=== PATIENT | female | born 1945 | race Caucasian/White ===

== ENCOUNTER → 2021-05-23 12:37 | Outpatient (BNVA) | payer MEDICARE, SELFPAY | PROVIDERS: Family Provider Family Medicine; PCP Family Medicine; Visit Provider Family Medicine | DX: E78.00 Pure hypercholesterolemia, unspecified (principal); Z00.00 Encounter for general adult medical examination without abnormal findings; I10 Essential (primary) hypertension | CPT/HCPCS: 80053; 80061; 85025 ==

== ENCOUNTER → 2021-08-15 11:34 | Outpatient (BNVA) | payer MEDICARE, SELFPAY | PROVIDERS: Family Provider Family Medicine; PCP Family Medicine; Visit Provider Registered Nurse Neonatal Intensive Care | DX: M54.9 Dorsalgia, unspecified (principal) | CPT/HCPCS: 81000 ==

== ENCOUNTER → 2021-09-05 10:28 | Outpatient (BNVA) | payer MEDICARE, SELFPAY | PROVIDERS: Family Provider Family Medicine; PCP Family Medicine; Visit Provider Nurse Practitioner | DX: N39.0 Urinary tract infection, site not specified (principal) | CPT/HCPCS: 81000 ==

== ENCOUNTER → 2021-09-19 08:58 | Outpatient (BNVA) | payer MEDICARE, SELFPAY | PROVIDERS: Family Provider Family Medicine; PCP Family Medicine; Visit Provider Family Medicine | DX: R10.9 Unspecified abdominal pain (principal); N20.1 Calculus of ureter; R10.32 Left lower quadrant pain | CPT/HCPCS: 81000 ==

== ENCOUNTER 2021-09-27 14:02 | Outpatient (CLI) | payer MEDICARE, SELFPAY ==
--- NOTE | 2021-09-27 14:00 | CT_ITS ---
WS: [id number] CT ABDOMEN PELVIS TECHNIQUE: Noncontrast CT of the abdomen and pelvis with coronal and sagittal reformatted images. CLINICAL INFORMATION: dysuria, left lower quad pain COMPARISON: None. DLP: 208.[address] scans at [facility] use at least one of these dose optimization techniques: automated e xposure control; mA and/or kV adjustment per patient size (includes targeted exams where dose is matc hed to clinical indication); or iterative reconstruction. FINDINGS: Prior hysterectomy.Mild hepatomegaly. Otherwise normal noncontrast liver. Normal gallbladder. Calcifi ed splenic granulomas. Normal GE junction. Lung bases are well aerated. Adrenal glands are normal. Mi ld fatty atrophy of the pancreas. Normal caliber abdominal aorta. Mild aortic calcification. No obstr ucting renal or ureteral calculi. Pelvic phleboliths. Normal sigmoid colon. No evidence of small or l arge bowel obstruction. No periaortic or pelvic lymphadenopathy. No inguinal lymphadenopathy. Slight anterolisthesis L3 on L4. Disc space narrowing worse L4-5. CT/CT kidney stone [id number] IMPRESSION: 1. No hydronephrosis in either kidney. No obstructing renal or ureteral calcul i. 2. Mild aortic calcification. Normal caliber abdominal aorta. 3. Prior hysterectomy. 4. Normal sigmoid colon. 5. No acute findings in the abdomen or pelvis.
== END 2021-09-27 14:03 | disposition home or self-care (01) ==
PROVIDERS: PCP Family Medicine; Visit Provider Family Medicine
DX: R30.0 Dysuria (principal); R10.32 Left lower quadrant pain; I70.0 Atherosclerosis of aorta; Z90.710 Acquired absence of both cervix and uterus
CPT/HCPCS: 74176

== ENCOUNTER → 2021-10-31 11:14 | Outpatient (BNVA) | payer MEDICARE, SELFPAY | PROVIDERS: PCP Family Medicine; Visit Provider Nurse Practitioner | DX: R50.9 Fever, unspecified (principal) | CPT/HCPCS: 87400; 87635 ==

== ENCOUNTER 2022-01-15 09:04 | Outpatient (CLI) | payer MEDICARE, SELFPAY ==
--- NOTE | 2022-01-15 10:00 | US_ITS ---
WS: [id number] INDICATION: Growing mass anterior LEFT chest and shoulder TECHNIQUE: Ultrasound soft tissue area of concern. FINDINGS: Ultrasound soft tissue area of concern. In the area of palpable concern there is a 6.4 x 3. 3 x 6.0 cm ovoid mixed echogenicity nodule. This most likely represents incidental lipoma. No other s uspicious lesions. US/US soft tissue/extremity [id number] IMPRESSION: Suspected lipoma in the area of concern described above
== END 2022-01-15 09:05 | disposition home or self-care (01) ==
LOC: RAD 09:06
PROVIDERS: PCP Family Medicine; Visit Provider Family Medicine
DX: D17.1 Benign lipomatous neoplasm of skin and subcutaneous tissue of trunk (principal); R22.2 Localized swelling, mass and lump, trunk
CPT/HCPCS: 76882

== ENCOUNTER 2022-02-14 06:43 | Observation (INO) | payer MEDICARE, SELFPAY ==
[2022-02-14] VITALS (24 sets, daily range): BP systolic 122–221; BP diastolic 58–103; PULSE 57–114; RESP 11–26; TEMP 36.5–36.7; O2SAT 96–100; BMI 26.5
[2022-02-14] MEDS: metoprolol tartrate 25 mg Tablet PO ×2 (08:02→09:21)
--- NOTE | 2022-02-14 08:32 | PC.PHAR ---
pt states she takes care of her own medications-rx written 02/13/22 for metoprolol tartrate 12.5mg bid pt states not picked up rx-pt had rx filled 09/13/21 for metoprolol tartrate 12.5mg bid pt states was just taking 12.5mg hs and ran out a few weeks ago or maybe longer-notes are made in the pharmacy comments
--- NOTE | 2022-02-14 08:43 | CT_ITS ---
WS: [id number] CT HEAD NONCONTRAST HISTORY: Elevated BP/dizziness TECHNIQUE: Contiguous axial imaging performed through the brain in 2.5 mm imaging. Bone and soft tiss ue windows. Sagittal and coronal reformats reviewed. All CT scans at [facility] [place] use at least one of these dose optimization techniques: automated exposure control; mA and/or kV adjustment per pa tient size (includes targeted exams where dose is matched to clinical indication); or iterative recon struction. DLP: 715.06 mGy.cm COMPARISON: None available. No acute intracranial hemorrhage, midline shift or mass effect. Very mild atrophy and small vessel ischemic disease. Mild calcification in the distal vertebral and intracranial carotid arteries. Ventricles: Normal size with no hydrocephalus. Paranasal sinuses: As visualized are clear. Mastoid air cells: Well pneumatized. Calvarium and scalp: Skull is intact with no soft tissue edema or swelling. CT/CT head wo con* [id number] IMPRESSION: 1. No acute intracranial hemorrhage. 2. Very mild atrophy and small vessel ischemic disease.
--- NOTE | 2022-02-14 08:43 | ECG_ITS ---
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 Measurements Intervals [place] Rate: 112 P: 54 MD: 145 QRS: 69 QRSD: 85 T: 49 QT: 340 QTc: 465 Interpretive Statements SINUS TACHYCARDIA WITH FREQUENT SUPRAVENTRICULAR RUNS NONSPECIFIC ST & T-WAVE ABNORMALITY ABNORMAL RHYTHM ECG No previous ECG available for comparison Electronically Signed On 02-14-2022 22:19:11 CDT by Vangie Mohamud M.D. [id number]
--- NOTE | 2022-02-14 09:14 | W.ED.DIZZY ---
HPI - Dizziness General: Chief Complaint: Dizziness Stated Complaint: BP abnormality Time Seen by Provider: 02/14/22 07:03 Source: patient Mode of arrival: ambulatory Limitations: no limitations History of Present Illness: HPI Narrative: 77-year-old female presents to the emergency room with dizziness lightheadedness and elevated blood pressure. At times she has near syncope. Her blood pressures been high last few weeks. Sometime the last 2 to 4 weeks she is uncertain of the exact date she ran out of metoprolol and stopped it. When she first came in she thought she is having panic attack. She denies any chest pain or shortness of breath. The metoprolol was initially started for what was described as palpitations but she stopped that after she had run out she is only been taking 12 and half twice daily in addition to that she is on lisinopril she takes her medications mostly at bedtime she is states she has been taking all of the other medications besides metoprolol regularly. She has no known history of atrial fibrillation. At the bedside she has intermittent short runs of rapid heart rates appears to be atrial fibrillation on auscultation it sounds as if she is having atrial fibrillation they are all self-limiting episodes. MD elicited complaint: dizziness and lightheadedness Onset (ago): day(s) Timing: gradual onset Severity: mild Description: lightheadedness and off-balance Context: change in medication Exacerbating factors: movement/ambulation and change in body position Relieving factors: remaining still and rest Associated symptoms: Denies change in hearing, chest pain, chills, cough, diaphoresis, ear discharge, ear pressure, fevers/chills, headache(s), malaise, nausea, nasal congestion, palpitations, rash, short of breath, syncope, tinnitus, vomiting or weakness Associated neuro symptoms: Reports confusion; Deny difficulty speaking, dysphagia, diplopia, extremity weakness, facial numbness, facial weakness, gait changes, numbness in extremities or visual changes Review of Systems Const: Denies: chills, malaise or diaphoresis ENMT: Denies: ear discharge, change in hearing, tinnitus or nasal congestion Card: Denies: chest pain, palpitations or syncope Resp: Denies: dyspnea, productive cough or non-productive cough GI: Denies: nausea, vomiting or dysphagia : Denies: flank pain, difficulty voiding, dysuria, urinary frequency or urinary urgency Skin/Breast: Denies: rash or pruritus Neuro: Reports: confusion; Denies: headache(s) or numbness in extremities PFSH ED PFSH: Medical History (Updated 02/14/22 @ 15:14 by Oliver Calero DO) Hypercholesteremia Hypertension Lipoma of anterior chest wall Ureterolithiasis Surgical History H/O: hysterectomy History of carpal tunnel surgery Family History Other CAD (coronary artery disease) Social History (Updated 02/14/22 @ 11:56 by Jamie Alexander MD) Smoking and tobacco status: never smoked Alcohol intake: never Physical Exam Const: COMMON NORMALS: no acute distress GENERAL APPEARANCE: cooperative and comfortable ORIENTATION/CONSCIOUSNESS: Yes awake, Yes oriented to person, Yes oriented to place and Yes oriented to time HENMT: COMMON NORMALS: normocephalic, atraumatic and hearing grossly normal bilaterally HEAD & SCALP: normocephalic and atraumatic Neck/C-Spine: COMMON NORMALS: no JVD Resp: COMMON NORMALS: normal respiratory effort, No retractions, No use of accessory muscles and clear to auscultation bilaterally AUSCULTATION: clear to auscultation bilaterally Cardio: COMMON NORMALS: no JVD, regular rate, regular rhythm and No murmurs present (Cardio) RATE: regular rate RHYTHM: regular rhythm GI: COMMON NORMALS: Soft to palpation and No hepatosplenomegaly present AUSCULTATION: Yes normoactive bowel sounds PALPATION: Yes Soft to palpation, No Tenderness to palpation present (GI), No Guarding due to palpation present (GI) and Yes No hepatosplenomegaly present Extremity: COMMON NORMALS: normal to inspection, capillary refill normal, no clubbing, cyanosis or edema, no calf tenderness and no pedal edema Neuro: SENSORIUM/ORIENTATION: Yes oriented to person, Yes oriented to place and Yes oriented to time Skin: COMMON NORMALS: no rashes or lesions noted GENERAL SKIN EXAM: no rashes or lesions noted Course Vital Signs: Vital signs: Vital Signs Temperature 98.1 F 02/14/22 07:10 Pulse Rate 75 02/14/22 13:22 Respiratory Rate 25 H 02/14/22 13:22 Blood Pressure 152/67 02/14/22 13:22 Pulse Oximetry 96 02/14/22 13:22 MDM - Dizziness Medical Decision Making While monitoring patient multiple episodes of self terminating atrial fibrillation on her monitor. She did have brief episodes of her heart rate going up 140s and 150s last for just 10-15 beats and then resolved. Her blood pressure is also markedly elevated. We gave her several push dose medications and it did not really respond much. We started on nicardipine. I chose nicardipine to they can continue to monitor her for her intermittent A. fib rather than support suppress it with the esmolol. We did give her some p.o. metoprolol initially gave her 5 IV and then 25 p.o. she continued to have episodes I gave her another 25 p.o. She not having any chest pain and neurologically she is fully intact at on her initial exam there is no localizing symptoms. The family became concerned she may be having a stroke I went and did a formal NIH score and she had a 0. At this point in think she needs to be admitted for accelerated hypertension which has improved remarkably on the nicardipine drip and also for her intermittent atrial fibrillation to assess effective treatment and potential for anticoagulation. Medical Records I reviewed the patient's medical records. Lab Data I reviewed the patient's lab results. : 02/14/22 09:13 02/14/22 09:[address] 02/14/22 08:43 IMPRESSION: 1. No acute intracranial hemorrhage. 2. Very mild atrophy and small vessel ischemic disease. Chest X-Ray 02/14/22 12:02 IMPRESSION: No acute findings. Finger X-Ray 02/14/22 12:06 IMPRESSION: 1. 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 2. There is edema in the soft tissues. Laboratory Results WBC 9.2 10^3/uL (4.0-10.0) 02/14/22 09:13 RBC 5.10 10^6/uL (4.1-5.3) 02/14/22 09:13 Hgb 15.0 g/dL (11.5-15.3) 02/14/22 09:13 Hct 43.7 % (37.0-47.0) 02/14/22 09:13 MCV 85.7 fl (81-99) 02/14/22 09:13 MCH 29.4 pg (28.0-34.0) 02/14/22 09:13 MCHC 34.3 g/dL (30.0-36.0) 02/14/22 09:13 RDW 13.9 % (12.1-15.1) 02/14/22 09:13 Plt Count 349 10^3/cmm (130-400) 02/14/22 09:13 MPV 9.9 fL (7.4-10.4) 02/14/22 09:13 Neut % (Auto) 57.8 % 02/14/22 09:13 Lymph % (Auto) 32.1 % 02/14/22 09:13 [place] % (Auto) 7.7 % 02/14/22 09:13 Eos % (Auto) 1.1 % 02/14/22 09:13 Baso % (Auto) 1.0 % 02/14/22 09:13 Neut # (Auto) 5.32 10^3/uL (1.8-7.7) 02/14/22 09:13 Lymph # (Auto) 3.0 10^3/uL (0.8-4.8) 02/14/22 09:13 [place] # (Auto) 0.7 10^3/uL (0.2-0.9) 02/14/22 09:13 Eos # (Auto) 0.1 10^3/uL (0.0-0.8) 02/14/22 09:13 Baso # (Auto) 0.1 10^3/uL (0.0-0.1) 02/14/22 09:13 Nucleated RBC % (auto) 0 % 02/14/22 09:13 Nucleated RBCs # 0.0 /100WBC 02/14/22 09:13 Sodium 140 mmol/L (136-145) 02/14/22 09:13 Potassium 4.0 mmol/L (3.5-5.1) 02/14/22 09:13 Chloride 104 mmol/L (98-107) 02/14/22 09:13 Carbon Dioxide 22 mmol/L (22-29) 02/14/22 09:13 Anion Gap 18.0 (5-19) 02/14/22 09:13 BUN 15 mg/dL (8-23) 02/14/22 09:13 Creatinine 0.8 mg/dL (0.5-0.9) 02/14/22 09:13 GFR Calculation Not Reportable 02/14/22 09:13 Glucose 124 mg/dL (65-115) H 02/14/22 09:13 Calculated Osmolality 292 mOsm/kg (285-295) 02/14/22 09:13 Calcium 9.7 mg/dL (8.5-10.5) 02/14/22 09:13 Magnesium 1.9 mg/dL (1.7-2.3) 02/14/22 09:13 Total Bilirubin 0.7 mg/dL (0.15-1.2) 02/14/22 09:13 AST 21 U/L (0-32) 02/14/22 09:13 ALT 9 U/L (0-33) 02/14/22 09:13 Alkaline Phosphatase 99 IU/L (35-105) 02/14/22 09:13 Troponin T Baseline 7 ng/L (0-10) 02/14/22 09:13 Troponin T 120 Minute 9.40 ng/L (0-10) 02/14/22 11:38 Delta Troponin T 2.4 ABS# (0-10) 02/14/22 11:38 Total Protein 8.3 g/dL (6.6-8.7) 02/14/22 09:13 Albumin 4.6 g/dL (3.5-5.2) 02/14/22 09:13 Globulin 3.7 g/dL (1.3-4.6) 02/14/22 09:13 TSH 2.79 uIU/mL (0.27-4.20) 02/14/22 09:13 Urine Color Yellow (Yellow) 02/14/22 09:00 Urine Appearance Clear (CLEAR) 02/14/22 09:00 Urine pH 5 (5-7) 02/14/22 09:00 Ur Specific [place] 1.000 (1.005-1.030) L 02/14/22 09:00 Urine Protein Neg (Negative) 02/14/22 09:00 Urine Glucose (UA) Norm (Normal) 02/14/22 09:00 Urine Ketones Negative (Negative) 02/14/22 09:00 Urine Blood Neg (Negative) 02/14/22 09:00 Urine Nitrate Negative (Negative) 02/14/22 09:00 Urine Bilirubin Neg (Negative) 02/14/22 09:00 Urine Urobilinogen Norm mg/dL (Negative) 02/14/22 09:00 Ur Leukocyte Esterase Negative (Negative) 02/14/22 09:00 Discharge Plan Discharge Patient Disposition: Admitted As Inpatient Clinical Impression: Accelerated hypertension, Intermittent atrial fibrillation Condition: Stable Prescriptions: No Action metoprolol tartrate 25 mg tablet 12.5 mg PO BID Qty: 90 2RF Aleve 220 mg Tablet 220 mg PO BID PRN (Reason: Pain) 0RF atorvastatin 10 mg tablet 10 mg PO BEDTIME 0RF lisinopril 20 mg tablet 20 mg PO BEDTIME 0RF Referrals: Gary Wyatt MD [Primary Care Provider] - Coding Level of Care Code ED Dye Machine Operator for Chg Fwd Exam Comprehensive
[2022-02-14] MEDS: enalaprilat 1.25 mg/mL Inj IVP (09:20)
[2022-02-14 09:21] LABS: Basophils # 0.1 10^3/uL (0.0-0.1); Eosinophils # 0.1 10^3/uL (0.0-0.8); Eosinophils % 1.1 %; Hematocrit 43.7 % (37.0-47.0); Lymphocytes % 32.1 %; Mean Corpuscular HGB Conc 34.3 g/dL (30.0-36.0); Mean Corpuscular Hemoglobin 29.4 pg (28.0-34.0); Mean Corpuscular Volume 85.7 fl (81-99); Mean Platelet Volume 9.9 fL (7.4-10.4); Monocytes # 0.7 10^3/uL (0.2-0.9); Monocytes % 7.7 %; Neutrophils # 5.32 10^3/uL (1.8-7.7); Neutrophils % 57.8 %; Nucleated Red Blood Cells % 0 %; Platelet Count 349 10^3/cmm (130-400); Red Cell Distribution Width 13.9 % (12.1-15.1); White Blood Count 9.2 10^3/uL (4.0-10.0)
[2022-02-14] MEDS: amlodipine 10 mg Tablet PO (09:21)
[2022-02-14] MEDS: metoprolol tartrate 1 mg/1 mL SDV 5 mL 5 MG IVP (09:21)
[2022-02-14 09:39] LABS: Alanine Aminotransferase 9 U/L (0-33); Albumin Level 4.6 g/dL (3.5-5.2); Alkaline Phosphatase 99 IU/L (35-105); Aspartate Amino Transferase 21 U/L (0-32); Blood Urea Nitrogen 15 mg/dL (8-23); Calcium 9.7 mg/dL (8.5-10.5); Carbon Dioxide 22 mmol/L (22-29); Chloride 104 mmol/L (98-107); Globulin 3.7 g/dL (1.3-4.6); Glucose 124 mg/dL (65-115); Osmolality Calculated 292 mOsm/kg (285-295); Sodium 140 mmol/L (136-145); Total Bilirubin 0.7 mg/dL (0.15-1.2); Total Protein 8.3 g/dL (6.6-8.7)
--- NOTE | 2022-02-14 10:07 | ECG_ITS ---
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 Measurements Intervals [place] Rate: 78 P: 11 CO: 130 QRS: 60 QRSD: 84 T: 53 QT: 377 QTc: 431 Interpretive Statements SINUS RHYTHM WITH FREQUENT SUPRAVENTRICULAR PREMATURE COMPLEXES Compared to ECG 02/14/2022 08:22:58 Sinus tachycardia no longer present T-wave abnormality no longer present Electronically Signed On 02-14-2022 22:16:39 CDT by Vangie Mohamud M.D. [id number]
[2022-02-14] MEDS: nicardipine 20 MG/200 ML PREMIX 50 MG IV (10:42)
[2022-02-14] MEDS: enoxaparin 80 mg/0.8 mL Syringe 70 MG SUBCUT ×2 (10:45→21:55)
[2022-02-14 11:25] LABS: Troponin(5th) Baseline 7 ng/L (0-10)
[2022-02-14 11:28] LABS: Magnesium 1.9 mg/dL (1.7-2.3); Thyroid Stimulating Hormone 2.79 uIU/mL (0.27-4.20)
--- NOTE | 2022-02-14 11:35 | USCV_ITS ---
Aida Dhillon Age: 77 Gender: F : 1945 Exam Date: 02/14/2022 12:56 Ordering Phys: Jamie Alexander MD Technologist: CAM Exam Location: [facility] [place] Indication: near syncope today. No hx cardiac intervention per patient. BP: 154 / 70 HR: 86 Rhythm: Sinus Technical Quality: Adequate MEASUREMENTS (Male / Female) Normal Values 2D ECHO LV Diastolic Diameter PLAX 3.9 cm 4.2 - 5.9 / 3.9 - 5.3 cm LV Systolic Diameter PLAX 2.3 cm IVS Diastolic Thickness 1.0 cm 0.6 - 1.0 / 0.6 - 0.9 cm IVS Systolic Thickness 1.5 cm LVPW Diastolic Thickness 1.0 cm 0.6 - 1.0 / 0.6 - 0.9 cm LVPW Systolic Thickness 1.3 cm LVOT Diameter 1.7 cm LV Ejection Fraction 2D Teich 74.2 % LV Ejection Fraction MOD 2C 73.7 % LV Ejection Fraction 2C AL 75.7 % LA Diameter 3.1 cm LA Width 2.9 cm LA Height 4.4 cm RA Width 3.0 cm RA Height 4.1 cm Aorta at Sinotubular Diameter 2.3 cm IVC Diameter 1.7 cm M-MODE Aortic Annulus Diameter 2.6 cm LA Ao Ratio MM 1.3 MV E Point Septal Separation 0.4 cm DOPPLER AV Peak Velocity 155.0 cm/s LVOT Peak Velocity 128.0 cm/s AV Area Cont Eq vti 1.8 cm squared AV Area Cont Eq pk 2.0 cm squared MV Peak Velocity 134.0 cm/s MV Area PHT 2.3 cm squared Mitral E to A Ratio 0.6 MV E' Velocity 36.5 cm/s Mitral E to MV E' Ratio 11.3 Mitral E to LV E' Lateral Ratio 11.7 Mitral E to LV E' Septal Ratio 10.9 TR Peak Velocity 236.0 cm/s TR Peak Gradient 22.3 mmHg TV Peak E Velocity 57.0 cm/s Right Atrial Pressure 5.0 mmHg Pulmonary Artery Systolic Pressu 27.3 mmHg PV Peak Velocity 121.0 cm/s RV Acceleration Time 0.1 s RV Ejection Time 0.3 s RV AcT/ET 0.4 FINDINGS Left Ventricle Normal left ventricular size and systolic function, EF 71 %. Grade I/IV diastolic dysfunction (abnormal relaxation filling pattern), normal to mildly elevated filling pressures. Right Ventricle The right ventricle is normal in size and function. Right Atrium The right atrium is normal in size. Left Atrium The left atrium is normal in size. Mitral Valve No gross abnormalities noted Aortic Valve No gross abnormalities noted Tricuspid Valve No gross abnormalities noted Pulmonic Valve No gross abnormalities noted Pericardium Normal pericardium without effusion. Aorta Normal ascending aorta dimension. IVC Normal size and collapsibility CONCLUSIONS Normal left ventricular size and systolic function, EF 71 %. Grade I/IV diastolic dysfunction (abnormal relaxation filling pattern), normal to mildly elevated filling pressures. Normal cardiac chamber sizes. No significant valvular abnormalities There is no pericardial effusion. There are no intracardiac masses. No similar previous studies are available for comparison Dr Geraldine Eastman MD FACC (Electronically Signed) Final Date: 15 February 2022 00:47 S
--- NOTE | 2022-02-14 11:50 | PC.CHAP ---
Pastoral Care Encounter/Spiritual Assessment Type of Contact [] Declined adviser sales visit [x] Patient/Family/Request visit [] Outpatient visit [] Follow-up visit [] Physician referral [] Code/Alert [] Routine visit [] Staff referral [] Actively dying [] Patient sleeping [] Family support [] [] Out of room [] Palliative care [] [] Receiving care in room [] Pre-surgical visit [] Trauma [] Long length of stay [] ICU visit [x] Other: ED Relational/Emotional Strength [x] Patient feels connected with others/family/visitors/staff [] Distress [] Loneliness/isolation [] Abandonment Spirituality of Patient [x] Person of Reba [x] Attends Hoahaoism of their Reba [x] Believes in Prayer [x] Reads Bible or Yarsani materials [] There are Spiritual issues to be addressed [facility] Interventions [x] Prayer [x] Active listening [x] Non-anxious presence [x] Spiritual/emotional support [] Crisis/trauma care [] Spiritual counseling [] Bereavement support [] Provided bereavement packet [] Provided Bible/devotional materials [] Provided toy/stuffed animal, coloring book to patient or family member [] Provided Communion [] Anointing/[place] [] Salvation [x] Completed spiritual assessment [] Other: Impact on Illness or Injury [] Angry [] Fearful [] Anxious [] Often cries [] Exhaustion [] Unable to work [] Unable to attend zoroastrianism [] Unable to walk/stand [] Unable to read [] Unable to drive [] Unable to eat/drink [] Unable to sleep [] Unable to be with family [] Patient intubated [] Other: Summary [facility] answered called to ED, patient desiring prayer. [facility] prayed with family and patient. Inquired of any other needs, none at thie time. Time spent with patient 10 min
--- NOTE | 2022-02-14 11:51 | PM.HP ---
Providers/Chief Complaint Admitting Physician: Jamie Alexander MD Primary Care Provider: Gary Wyatt MD Chief Complaint: BP abnormality History of Present Illness Aida Dhillon is a 77 year old female presents to the emergency department with complaints of palpitations, dizziness, lightheadedness. She feels like she might faint at times. She thinks this is been going on for at least 3 days, but perhaps longer. She has history of some palpitations dating back when she was around 21 years old or so. It has not been as bad as it is currently. She denies any history of atrial fibrillation. She states in the distant past she was checked out by Dr. Eastman, and told she had some leaky valves. Most recently she did complain of this to Dr. Wyatt, and received some metoprolol which she took up until about a month ago. She reports that helped significantly with the palpitations. She has also been on medication for hypertension, and having difficulty controlling her blood pressure. She denies any exertional chest discomfort. She denies any history of coronary disease. She states she has 5-6 caffeinated drinks per day. She denies any alcohol use. She reports no thyroid problems. She does report she was bit on the tip of her right fifth finger several days ago by a kitten. It has been swelling. In the emergency department blood pressure was markedly elevated and she received Norvasc, Vasotec, metoprolol, and was eventually placed on a nicardipine drip. She has received 1 dose of Lovenox. The emergency department physician reported she was having intermittent runs of atrial fibrillation. Review of Systems General: Reports: 10 or more systems reviewed and unremarkable except in HPI and below Const: Denies: fever(s) or chills Eyes: Denies: change in vision ENMT: Denies: throat pain Card: Reports: palpitations and pre-syncope Resp: Denies: dyspnea GI: Denies: abdominal pain, hematochezia or melena : Denies: flank pain or difficulty voiding Musc: Denies: neck pain Skin/Breast: Denies: rash Neuro: Denies: headache(s) Psych: Reports: anxiety; Denies: depression Endo: Denies: polyuria Kana/Lymph: Denies: easy bruising All/Imm: Denies: urticaria Medications/Allergies Home Medications Medication Instructions Recorded Confirmed Last Taken Type metoprolol tartrate 25 mg tablet 12.5 mg PO BID #90 tab 02/13/22 02/14/22 Unknown Rx atorvastatin 10 mg tablet 10 mg PO BEDTIME 02/14/22 02/14/22 02/13/22 History lisinopril 20 mg tablet 20 mg PO BEDTIME 02/14/22 02/14/22 02/13/22 History naproxen sodium 220 mg tablet 220 mg PO BID PRN 02/14/22 02/14/22 Unknown History (Aleve) Allergies Allergy/AdvReac Type Severity Reaction Status Date / Time No Known Allergies Allergy Verified 02/14/22 08:32 PFSH Acute PFSH: Medical History (Updated 02/14/22 @ 12:12 by Jamie Alexander MD) Hypercholesteremia Hypertension Lipoma of anterior chest wall Ureterolithiasis Surgical History H/O: hysterectomy History of carpal tunnel surgery Family History Other CAD (coronary artery disease) Social History (Updated 02/14/22 @ 11:56 by Jamie Alexander MD) Smoking and tobacco status: never smoked Alcohol intake: never Vitals/I&O/Wt Last Vital Signs Temp 98.1 F 02/14/22 07:10 Pulse 89 02/14/22 11:48 Resp 21 H 02/14/22 11:48 BP 141/68 02/14/22 11:48 Pulse Ox 98 02/14/22 11:48 Weight last 48 hrs Weight 68.039 kg Physical Exam Narrative: General exam is a white female, conversant, reporting she feels somewhat better than on arrival. HEENT: Atraumatic normocephalic. Oropharynx clear. Neck is supple no lymphadenopathy thyromegaly Cardiovascular regular rate and rhythm with frequent premature beats. No murmur Lungs clear no wheezing or crackles Abdomen is soft with positive bowel sounds. No obvious organomegaly exams deferred Extremities no cyanosis clubbing or edema, cap refill brisk. Pulses full Skin no rash Neuro no focal deficits Data : 02/14/22 09:13 02/14/22 09:13 Other Labs: LFTs are normal Baseline troponin 7 TSH 2.[address] no acute change EKG demonstrates sinus rhythm, with frequent supraventricular complexes that are irregular at times. [place] is normal. ST depression is noted V4 through 6. Some ST changes are noted inferiorly as well. Magnesium is normal I have ordered a chest x-ray A&P Assessment and plan (1) Palpitations: Patient with complaints of palpitations upon arrival. The emergency department physician saw quite a bit of ectopy, runs of accelerated heart rate that was irregular consistent with atrial fibrillation. She was given multiple modifications for high blood pressure including metoprolol. She was given a dose of Lovenox. At this point her rhythm problems appear improved. Will continue metoprolol, 50 mg twice daily. Check echocardiogram TSH checked and normal as well as potassium and magnesium. Check chest x-ray Continue full anticoagulation for now Consider nuclear stress test in the future. Consider event monitor upon discharge. Status: Acute (2) Hypertensive urgency: Patient with significant elevated blood pressure on arrival. This is improved after dose of Norvasc, Vasotec, metoprolol, and initiation of nicardipine drip. Wean off nicardipine drip as tolerated Metoprolol 50 mg twice daily Lisinopril 20 mg at night Reassess tomorrow if Norvasc should be continued Status: Acute (3) Cat bite: Tetanus booster Augmentin 875 mg twice daily X-ray of right fifth finger Status: Acute Plan Multiple other medical problems as outlined in past medical history Full code Lovenox will suffice for DVT prophylaxis Attestations Medical Necessity Statement*: Will need greater than 2 midnight stay secondary to marked elevation of blood pressure with hypertensive urgency/accelerated hypertension in this patient with intermittent supraventricular rhythm consistent with atrial fibrillation requiring IV nicardipine currently. Coding Level of Care Code Acute Email Production Consultant for Omid Goodrich Diagnoses Palpitations R00.2 Hypertensive urgency I16.0 Cat bite [id number]
[2022-02-14 12:00] LABS: Add Urine Microscopic? NO; Charge for UA Resulting for Rev
[2022-02-14 12:01] LABS: Urine Appearance Clear (CLEAR); Urine Color Yellow (Yellow); pH Urine 5 (5-7)
[2022-02-14 12:02] LABS: Bilirubin Urine Neg (Negative); Blood Urine Neg (Negative); Glucose Urine UA Norm (Normal); Ketones Urine Negative (Negative); Leukocyte Esterase Urine Negative (Negative); Nitrate Urine Negative (Negative); Protein Urine Neg (Negative); Urobilinogen Urine Norm (Negative)
--- NOTE | 2022-02-14 12:02 | XRR_ITS ---
PROCEDURE INFORMATION: Exam: XR Chest Exam date and time: 02/14/2022 12:11 PM Age: 77 years old Clinical indication: Other: Palpitations TECHNIQUE: Imaging protocol: Radiologic exam of the chest. Views: 1 view. COMPARISON: CT kidney stone [id number] 09/27/2021 2:34 PM FINDINGS: Lungs: Unremarkable. No consolidation. Pleural spaces: Unremarkable. No pleural effusion. No pneumothorax. Heart/Mediastinum: Unremarkable. No cardiomegaly. Bones/joints: Unremarkable. XR/XR chest 1V portable [id number] IMPRESSION: No acute findings.
--- NOTE | 2022-02-14 12:06 | XRR_ITS ---
PROCEDURE INFORMATION: Exam: XR Right Finger(s) Exam date and time: 02/14/2022 12:12 PM Age: 77 years old Clinical indication: Injury or trauma; Other: Cat bite; Puncture; Right; Little finger; Injury date: 02/12/22; Injury details: Cat bit 5th digit 2 days ago, no pain just swelling; Additional info: Left 5th finger, history of cat bite TECHNIQUE: Imaging protocol: XR Right fingers. Views: Minimum 2 views. COMPARISON: US soft tissue/extremity [id number] 01/15/2022 9:22 AM FINDINGS: Bones/joints: Multi-articular primary osteoarthritic changes including joint space narrowing, subchondral cystic/sclerotic changes, and marginal osteophyte formations. These changes are most prominent across the 1st carpal metacarpal joint. Soft tissues: There is edema in the soft tissues. XR/XR finger RT min 2V [id number] IMPRESSION: 1. 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 2. There is edema in the soft tissues.
[2022-02-14 12:55] LABS: Troponin 5 2HR Delta 2.4 ABS# (0-10)
[2022-02-14 15:28] LABS: Troponin 5 6HR 10.07 ng/L (0-10)
[2022-02-14 15:36] LABS: Troponin 5 6HR Delta 3.07 ng/L (0-12)
--- NOTE | 2022-02-14 16:07 | ECG_ITS ---
[facility] Test Date: 2022-02-14 Pat Name: Aida Dhillon Department: Room: Gender: Female Rack Loader: : 1945 Requested By: Oliver Harrison Order Number: [id number] Lul MD: Vangie Mohamud M.D. Measurements Intervals [place] Rate: 65 P: 15 SC: 125 QRS: 74 QRSD: 85 T: 73 QT: 415 QTc: 433 Interpretive Statements SINUS RHYTHM Compared to ECG 02/14/2022 11:32:36 No significant changes Electronically Signed On 02-14-2022 22:22:46 CDT by Vangie Mohamud M.D. [id number]
[2022-02-14] MEDS: amoxicillin-clav 875-125 mg Tablet 1 TAB PO (18:43)
--- NOTE | 2022-02-14 20:50 | PC.NURSE ---
MAR Upon transferring orders for patient from ER to ICU, multiple orders in MAR for the same medication. Dr. Chahal contacted; orders clarified in orders by Dr. Chahal.
--- NOTE | 2022-02-14 20:56 | PM.EVENT ---
Event Note Event Note: Called with questions regarding multiple medications that were processed at the time of transfer. Reviewed patient's chart and Dr. Alexander's note and have continued metoprolol 50 mg p.o. twice daily along with lisinopril 20 mg p.o. at night. Nicardipine drip has been discontinued in the emergency room prior to patient's arrival in the ICU. I will not continue that at this time. Patient's blood pressure is currently 157/77 and pulse is 67. No recent pauses or ectopy identified per nursing report and patient without acute new complaint.
[2022-02-14] MEDS: metoprolol tartrate 50 mg Tablet PO (21:08)
[2022-02-14] MEDS: lisinopril 20 mg Tablet PO (21:09)
[2022-02-14] MEDS: atorvastatin 40 mg Tablet 10 MG PO (21:09)
[2022-02-14] MEDS: hyDRALAzine 20 mg/mL INJ 1 mL 10 MG IVP (22:56)
--- NOTE | 2022-02-14 23:00 | PC.NURSE ---
Anxiety Patient's systolic blood pressure > 200 and HR in 110s. Blood pressure cuff repositioned and pressure rechecked with a result of 192/91. Hydralazine PRN administered per OCT. About 15 minutes later, patient complaining of anxiety and feeling a pounding heart. Patient denies any pain or use of anxiety medication at home. Dr. Chahal contacted and verbal order received for 0.125 mg Xanax PO once. Medication administered per OCT.
[2022-02-14] MEDS: ALPRAZolam 0.5 mg Tablet 0.125 MG PO (23:38)
[2022-02-15] VITALS (69 sets, daily range): BP systolic 91–158; BP diastolic 45–82; PULSE 53–98; RESP 13–36; TEMP -17.7–36.9; O2SAT 93–100; BMI 26.5
--- NOTE | 2022-02-15 04:40 | PC.NURSE ---
Stress Test Upon informing patient of time of stress test in the morning, patient states I don't think I am well enough to do the stress test. I do not want to do it today. Education provided regarding importance of test, steps taken to prepare for the test, and how the test proceeds; educational papers also provided over the test. Dr. Chahal notified of patient refusal. Further education provided on when the physician will round in the morning and the process needed in order to change her diet order. Patient and family verbalized understanding.
[2022-02-15 05:50] LABS: Basophils # 0.1 10^3/uL (0.0-0.1); Eosinophils # 0.1 10^3/uL (0.0-0.8); Eosinophils % 0.7 %; Hematocrit 45.7 % (37.0-47.0); Hemoglobin 14.8 g/dL (11.5-15.3); Lymphocytes # 2.6 10^3/uL (0.8-4.8); Lymphocytes % 23.5 %; Mean Corpuscular HGB Conc 32.4 g/dL (30.0-36.0); Mean Corpuscular Hemoglobin 29.7 pg (28.0-34.0); Mean Corpuscular Volume 91.6 fl (81-99); Mean Platelet Volume 10.4 fL (7.4-10.4); Monocytes # 0.6 10^3/uL (0.2-0.9); Monocytes % 5.4 %; Neutrophils # 7.52 10^3/uL (1.8-7.7); Nucleated Red Blood Cells % 0 %; Platelet Count 369 10^3/cmm (130-400); Red Blood Count 4.99 10^6/uL (4.1-5.3); Red Cell Distribution Width 14.4 % (12.1-15.1); White Blood Count 10.9 10^3/uL (4.0-10.0)
--- NOTE | 2022-02-15 05:51 | PC.NURSE ---
Patient refuses stress test at this time. Pt states I just don't feel up to it right now. Patient and family educated on importance of test. Physician notified by patient's nurse.
[2022-02-15 06:06] LABS: Anion Gap 17.2 (5-19); Blood Urea Nitrogen 18 mg/dL (8-23); Calcium 9.5 mg/dL (8.5-10.5); Carbon Dioxide 23 mmol/L (22-29); Chloride 104 mmol/L (98-107); Glucose 114 mg/dL (65-115); Magnesium 1.8 mg/dL (1.7-2.3); Osmolality Calculated 293 mOsm/kg (285-295); Potassium 4.2 mmol/L (3.5-5.1); Sodium 140 mmol/L (136-145)
--- NOTE | 2022-02-15 07:55 | PM.PN ---
Subjective Subjective: Aida reports she feels tired and very hungry. She had some palpitations last night but they have let up. She had refused her stress test this morning so it has been canceled. She reported she did not feel like she could undergo it in her current state of hunger, and weakness. Daughter and her are still very concerned and want this done, but do not believe she can have this done today. Medications: Reviewed: Yes Vitals/I&O/Wt Last Vital Signs Temp 98.1 F 02/15/22 04:00 Pulse 60 02/15/22 06:30 Resp 22 H 02/15/22 06:30 BP 119/59 02/15/22 06:30 Pulse Ox 98 02/15/22 06:30 02/14/22 02/15/22 02/15/22 22:59 06:59 14:59 Output Total 200 / 200 Balance -200 / -95 Weight last 48 hrs Weight 67.993 kg Weight 67.993 kg Weight 68.039 kg Physical Exam Narrative: General exam is a white female, no apparent distress. Currently sinus rhythm with much less ectopy. Neck is supple no lymphadenopathy thyromegaly Cardiovascular regular rate and rhythm with frequent premature beats. No murmur Lungs clear no wheezing or crackles Abdomen is soft with positive bowel sounds. No obvious organomegaly Extremities no cyanosis clubbing or edema, cap refill brisk. Pulses full Skin no rash Data : 02/15/22 05:05 02/15/22 05:05 A&P Assessment and plan (1) Palpitations: Patient with complaints of palpitations upon arrival. The emergency department physician saw quite a bit of ectopy, runs of accelerated heart rate that was irregular consistent with atrial fibrillation. After extensive review of this it appears more consistent with frequent PACs, runs of SVT. She was given multiple modifications for high blood pressure including metoprolol. She was given a dose of Lovenox. At this point her rhythm problems appear improved. Occasional PACs are noted. TSH, potassium, magnesium level are all normal Will continue metoprolol, 50 mg twice daily. This has improved her rhythm substantially. Echocardiogram has now been completed, preserved EF, grade 1/4 diastolic dysfunction Chest x-ray normal Change anticoagulation to DVT prophylaxis Event monitor on discharge Nuclear stress test planned for tomorrow. May transfer to [facility]. Status: Acute (2) Hypertensive urgency: Patient with significant elevated blood pressure on arrival. This is improved after dose of Norvasc, Vasotec, metoprolol, and initiation of nicardipine drip. She is now off nicardipine drip Continue metoprolol 50 mg twice daily Continue lisinopril 20 mg at night Hold Norvasc this morning Status: Acute (3) Cat bite: Tetanus booster Augmentin 875 mg twice daily X-ray of right fifth finger demonstrates no obvious osteomyelitis Status: Acute Plan Multiple other medical problems as outlined in past medical history Full code Lovenox will suffice for DVT prophylaxis Attestations Medical Necessity Statement*: Needs continued hospitalization for close follow-up of elevated blood pressure requiring of cardiac pain yesterday, arrange nuclear stress test tomorrow. Coding Level of Care Code Acute Engineering Program Manager for Omid Goodrich Diagnoses Palpitations R00.2 Hypertensive urgency I16.0 Cat bite [id number]
[2022-02-15] MEDS: metoprolol tartrate 50 mg Tablet PO ×2 (08:05→20:23)
[2022-02-15] MEDS: aspirin 81 mg EC Tablet PO (08:05)
[2022-02-15] MEDS: amoxicillin-clav 875-125 mg Tablet 1 TAB PO ×2 (08:05→16:52)
[2022-02-15] MEDS: tetanus-diphtheria tox (adult) 0.5 mL SDV IM (08:14)
[2022-02-15] MEDS: ALPRAZolam 0.5 mg Tablet PO (16:52)
--- NOTE | 2022-02-15 17:53 | PC.NURSE ---
Pt has been resting in bed most of day, ambulates to bathroom s assistance. Denies any pain. Xanax 0.5mg PO given d/t c/o increased anxiety. VSS, RA, no issues noted. Will monitor.
--- NOTE | 2022-02-15 18:32 | PC.NURSE ---
PT transported to room 272 with family at bedside. Tolerated well. New nurse at bedside after arrival.
[2022-02-15] MEDS: lisinopril 20 mg Tablet PO (20:23)
[2022-02-15] MEDS: atorvastatin 40 mg Tablet 10 MG PO (20:23)
[2022-02-15] MEDS: enoxaparin 40 mg/0.4 mL Syringe SUBCUT (20:23)
[2022-02-16] VITALS (7 sets, daily range): BP systolic 110–152; BP diastolic 58–70; PULSE 49–79; RESP 16; TEMP 36.4; O2SAT 98–100
--- NOTE | 2022-02-16 05:22 | PC.NURSE ---
Instructed patient on cardiac stress this morning. Patient verbalized complete understanding stating, I am ready this morning. Patient denies need for anxiety medication at this time. Will continue to monitor.
--- NOTE | 2022-02-16 06:46 | ECG_ITS ---
[facility] Test Date: 2022-02-16 Pat Name: Aida Dhillon Department: Room: 272 Gender: Female Manager Life: Ary De Dios : 1945 Requested By: Jamie Howard Order Number: [id number] Lul MD: Rashel Alvarado M.D. Interpretive Statements NAME OF STUDY: LEXISCAN SESTAMIBI STRESS TEST INDICATION: [Chest Pain, arrhythmia, ] Procedure: At the baseline, the blood pressure was 142/60 mmHg with a heart rate of 59bpm. The electrocardiogram showed normal sinus bradycardia, normal axis with normal ST and T's. The Lexiscan was infused over a period of 20 seconds. A total of 0.4 mg of Lexiscan was infused. The stress phase was continued for a total of 5 minutes. Heart rate was at the end of stress phase was 89 bpm and a blood pressure of 76/47 mmHg. The EKG at the peak infusion revealed normal sinus rhythm with no significant ST-T wave changes. Sestamibi was injected 20 seconds after the Lexiscan infusion. Blood pressure at the end of recovery phase was 110/58 mmHg with a heart rate of 89 bpm. Conclusion: 1. Normal EKG response to Lexiscan infusion 2. No Lexiscan induced chest pain or cardiac arrhythmia. 3. Hypotensive blood pressure response and normal heart rate response. 4. Sestamibi/sestamibi perfusion scan pending; see separate report. Electronically Signed On 02-20-2022 14:22:29 CDT by Rashel Alvarado M.D. [id number]
[2022-02-16] MEDS: regadenoson 0.4 Mg/5 ml Syringe IVP (07:56)
[2022-02-16] MEDS: amoxicillin-clav 875-125 mg Tablet 1 TAB PO (10:18)
[2022-02-16] MEDS: aspirin 81 mg EC Tablet PO (10:18)
[2022-02-16] MEDS: metoprolol tartrate 50 mg Tablet PO (10:18)
--- NOTE | 2022-02-16 10:30 | NMCV_ITS ---
NM [place] perf SPECT r/s* [id number] Aida Dhillon Age: 77 Gender: F : 1945 Exam Date: 02/16/2022 06:51 Ordering Phys: Jamie Alexander MD Technologist: JUAN Melton Exam Location: [facility] Indications: CHEST PAIN STRESS TEST [facility] IMAGE PROTOCOL Rest/Stress 1 Lexiscan Day Radiopharmaceutical Dose (mCi) Administration Site Administered by Rest: Tc-99m 10.2 IV JUAN Salomon Sestamibi Stress:Tc-99m 32.2 IV JUAN Salomon Sestamibi Rest: 16-Feb-2022 60 Discovery 630 Stress: 16-Feb-2022 30 Discovery 630 0.4mg Lexiscan. Images obtained in supine and prone position. SPECT RESULTS Technical Quality: Excellent Raw Data Analysis: Normal Image Corrections: No attenuation or motion correction applied Summed Stress Score: 0 Summed Rest Score: 0 Summed Difference Score: 0 PERFUSION FINDINGS SPECT images demonstrate homogeneous tracer distribution throughout the myocardium. FUNCTIONAL RESULTS (calculated via Gated SPECT) Stress Image LV EF (%): 88 Stress EDV (mL):49 TID: 0.93 Stress ESV (mL):6 FUNCTIONAL FINDINGS: There is normal left ventricular systolic function. IMPRESSIONS 1. Normal myocardial perfusion imaging with no evidence of ischemia. 2. Normal LV systolic function Rashel Alvarado MD (Electronically Signed) Final Date: 16 February 2022 10:28 S
--- NOTE | 2022-02-16 11:35 | P.DS_ITS ---
Discharge Providers Date of Admission: 02/14/22 20:16 Date of Discharge: February 16, 2022 Attending Provider at Admission: Jamie Alexander MD Attending Provider at Discharge: Jamie Alexander MD Primary Care Provider: Gary Wyatt MD Diagnoses at Discharge Discharge Diagnosis (1) Palpitations: Status: Acute (2) Hypertensive urgency: Status: Acute (3) Cat bite: Status: Acute Reason for Visit Reason for Visit: BP abnormality Hospital Course Hospital Course Aida is a 77-year-old white female who presented to the hospital with significant palpitations. It was apparent from her strips there that she was having frequent runs of SVT. She was also having significant accelerated hypertension. She was initiated on a nicardipine drip, and beta-blockers were initiated. She ultimately titrated up to 50 mg metoprolol twice daily. Lisinopril 20 mg daily was also given. With this blood pressure came under better control, and she had much less arrhythmias. By the end of hospital stay she had only occasional PACs. She had no evidence of electrolyte abnormality, magnesium abnormality. Echocardiogram done in the hospital demonstrated normal ejection fraction, 1/4 diastolic dysfunction. Secondary to family history of premature heart disease, arrhythmia, chest discomfort she underwent a nuclear stress test which was normal on February 16. Other tests done in the hospital included a normal TSH. She will discharge today, with an event monitor on metoprolol, lisinopril, atorvastatin. She will follow-up with her primary care provider as well as cardiology. Physical Exam Narrative: General exam no distress Neck is supple no lymphadenopathy thyromegaly Cardiovascular regular rate and rhythm without murmur Lungs clear Abdomen is soft nontender positive bowel sounds Extremities no cyanosis clubbing or edema Discharge Data Studies Completed and Pending Completed Studies During Hospitalization Category Date Time Status CT head wo con* [id number] Stat Cat Scan 02/14/22 08:43 Completed Cardiac Stress Test MIBI [Sestamibi Stress Test Request Exams 02/16/22 06:46 Draft ] Routine XR chest 1V portable [id number] Routine Exams 02/14/22 12:02 Completed XR finger RT min 2V [id number] Routine Exams 02/14/22 12:06 Completed NM [place] perf SPECT r/s* [id number] Routine Nuc Med 02/16/22 10:30 Completed CV. echo complete* [id number] Routine Ultrasound 02/14/22 11:35 Completed Pending at discharge Category Date Time Status Cardiac Stress Test MIBI [Sestamibi Stress Test Request Exams 02/14/22 21:18 Stop Req ] Routine Cardiac Stress Test MIBI [Sestamibi Stress Test Request Exams 02/15/22 10:30 Stop Req ] Routine Radiology Impressions Head CT 02/14/22 08:43 IMPRESSION: 1. No acute intracranial hemorrhage. 2. Very mild atrophy and small vessel ischemic disease. Chest X-Ray 02/14/22 12:02 IMPRESSION: No acute findings. Finger X-Ray 02/14/22 12:06 IMPRESSION: 1. 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 2. There is edema in the soft tissues. Laboratory Results WBC 10.9 10^3/uL (4.0-10.0) H 02/15/22 05:05 RBC 4.99 10^6/uL (4.1-5.3) 02/15/22 05:05 Hgb 14.8 g/dL (11.5-15.3) 02/15/22 05:05 Hct 45.7 % (37.0-47.0) 02/15/22 05:05 MCV 91.6 fl (81-99) D 02/15/22 05:05 MCH 29.7 pg (28.0-34.0) 02/15/22 05:05 MCHC 32.4 g/dL (30.0-36.0) D 02/15/22 05:05 RDW 14.4 % (12.1-15.1) 02/15/22 05:05 Plt Count 369 10^3/cmm (130-400) 02/15/22 05:05 MPV 10.4 fL (7.4-10.4) 02/15/22 05:05 Neut % (Auto) 69.0 % 02/15/22 05:05 Lymph % (Auto) 23.5 % 02/15/22 05:05 [place] % (Auto) 5.4 % 02/15/22 05:05 Eos % (Auto) 0.7 % 02/15/22 05:05 Baso % (Auto) 1.0 % 02/15/22 05:05 Neut # (Auto) 7.52 10^3/uL (1.8-7.7) 02/15/22 05:05 Lymph # (Auto) 2.6 10^3/uL (0.8-4.8) 02/15/22 05:05 [place] # (Auto) 0.6 10^3/uL (0.2-0.9) 02/15/22 05:05 Eos # (Auto) 0.1 10^3/uL (0.0-0.8) 02/15/22 05:05 Baso # (Auto) 0.1 10^3/uL (0.0-0.1) 02/15/22 05:05 Nucleated RBC % (auto) 0 % 02/15/22 05:05 Nucleated RBCs # 0.0 /100WBC 02/15/22 05:05 Sodium 140 mmol/L (136-145) 02/15/22 05:05 Potassium 4.2 mmol/L (3.5-5.1) 02/15/22 05:05 Chloride 104 mmol/L (98-107) 02/15/22 05:05 Carbon Dioxide 23 mmol/L (22-29) 02/15/22 05:05 Anion Gap 17.2 (5-19) 02/15/22 05:05 BUN 18 mg/dL (8-23) 02/15/22 05:05 Creatinine 0.9 mg/dL (0.5-0.9) 02/15/22 05:05 GFR Calculation Not Reportable 02/15/22 05:05 Glucose 114 mg/dL (65-115) 02/15/22 05:05 Calculated Osmolality 293 mOsm/kg (285-295) 02/15/22 05:05 Calcium 9.5 mg/dL (8.5-10.5) 02/15/22 05:05 Magnesium 1.8 mg/dL (1.7-2.3) 02/15/22 05:05 Total Bilirubin 0.7 mg/dL (0.15-1.2) 02/14/22 09:13 AST 21 U/L (0-32) 02/14/22 09:13 ALT 9 U/L (0-33) 02/14/22 09:13 Alkaline Phosphatase 99 IU/L (35-105) 02/14/22 09:13 Troponin T Baseline 7 ng/L (0-10) 02/14/22 09:13 Troponin T 120 Minute 9.40 ng/L (0-10) 02/14/22 11:38 Delta Troponin T 2.4 ABS# (0-10) 02/14/22 11:38 Troponin T Hi Sens 6Hr 10.07 ng/L (0-10) H 02/14/22 14:44 Troponin T Hi Sens 6Hr Delta 3.07 ng/L (0-12) 02/14/22 14:44 Total Protein 8.3 g/dL (6.6-8.7) 02/14/22 09:13 Albumin 4.6 g/dL (3.5-5.2) 02/14/22 09:13 Globulin 3.7 g/dL (1.3-4.6) 02/14/22 09:13 TSH 2.79 uIU/mL (0.27-4.20) 02/14/22 09:13 Urine Color Yellow (Yellow) 02/14/22 09:00 Urine Appearance Clear (CLEAR) 02/14/22 09:00 Urine pH 5 (5-7) 02/14/22 09:00 Ur Specific [place] 1.000 (1.005-1.030) L 02/14/22 09:00 Urine Protein Neg (Negative) 02/14/22 09:00 Urine Glucose (UA) Norm (Normal) 02/14/22 09:00 Urine Ketones Negative (Negative) 02/14/22 09:00 Urine Blood Neg (Negative) 02/14/22 09:00 Urine Nitrate Negative (Negative) 02/14/22 09:00 Urine Bilirubin Neg (Negative) 02/14/22 09:00 Urine Urobilinogen Norm mg/dL (Negative) 02/14/22 09:00 Ur Leukocyte Esterase Negative (Negative) 02/14/22 09:00 Vitals Last Vital Signs Temp 97.6 F 02/16/22 09:19 Pulse 60 02/16/22 09:19 Resp 16 02/16/22 09:19 BP 144/70 02/16/22 09:19 Pulse Ox 100 02/16/22 09:19 Discharge Plan Discharge Patient Disposition: Home Condition: Stable Prescriptions: New Xanax 0.25 mg tablet 0.25 mg PO BID PRN (Reason: anxiety) Qty: 10 0RF aspirin 81 mg Tablet,Delayed Release (Dr/Ec) 81 mg PO DAILY Qty: 30 0RF amoxicillin-pot clavulanate 875-125 mg Tablet 1 tab PO BID Qty: 10 0RF metoprolol tartrate 50 mg Tablet 50 mg PO BID@0900,2100 Qty: 60 0RF Continued atorvastatin 10 mg tablet 10 mg PO BEDTIME 0RF lisinopril 20 mg tablet 20 mg PO BEDTIME 0RF Discontinued metoprolol tartrate 25 mg tablet 12.5 mg PO BID Qty: 90 2RF Aleve 220 mg Tablet 220 mg PO BID PRN (Reason: Pain) 0RF Discharge Orders: Discharge Order (Routine); Ordered 02/16/22 Ordered By: Jamie Alexander Other Ambulatory Orders: MCT/Event Monitor 21 Days (Routine) Timeframe: 1 Day Facility: [facility] - Location: Radiology Ordered By: Jamie Alexander Referrals: Gary Wyatt MD [Primary Care Provider] - 4-7 days Geraldine Eastman MD [Physician] - 7-10 days Discharge Diet: Cardiac Discharge Activity: Increase activity as tolerated Patient Instructions: Tetanus Toxoid (By injection), Opioid Safety Activity Restrictions/Additional Instructions: Take all meds as prescribed. Event monitor on discharge. Follow up with cardiology in 7-10 days. Return for any worsening, concerns Discharge Attestations Time Spent in Discharge Care*: greater than 30 min Quality Metrics Clinical Quality Measures [ No reported AMI, CVA or VTE this stay] Coding Level of Care Code Acute Chg FW DC note Diagnoses Palpitations R00.2 Hypertensive urgency I16.0 Cat bite W55.01XA
== END 2022-02-16 14:30 | disposition home or self-care (01) ==
LOC: ER 15:14 → ICU 02-15 01:30 → MEDSURG 02-16 11:15 → ICU 02-16 14:42
PROVIDERS: Admitting Provider Internal Medicine; Emergency Provider Family Medicine; PCP Family Medicine; Visit Provider Internal Medicine
DX: R00.2 Palpitations (principal); I16.0 Hypertensive urgency; W55.01XA Bitten by cat, initial encounter; E78.00 Pure hypercholesterolemia, unspecified; Z82.49 Family history of ischemic heart disease and other diseases of the circulatory system
CPT/HCPCS: 70450; 71045; 73140; 78452; 80048; 80053; 81003; 83735; 84443; 84484; 85025; 90471; 90714; 93005; 93306; 96372; 96374; 96375; 99285; A9500; G0378; J0360; J1650; J2785; J3490

== ENCOUNTER 2022-03-01 21:59 | Emergency (ER) | payer MEDICARE, SELFPAY ==
[2022-03-01 22:04] VITALS: BP 222/103; PULSE 63; RESP 16; TEMP 35.9; O2SAT 100
--- NOTE | 2022-03-01 22:25 | W.ED.ARRPALP ---
HPI - Arrhythmia/Palpitations General: Chief Complaint: Arrhythmia/Palpitations Stated Complaint: irregular heartbeat/feeling faint Time Seen by Provider: 03/01/22 22:25 History of Present Illness: Ms. Dhillon is a 77-year-old lady with history of hospitalization for accelerated hypertension who presents to the emergency department due to high blood pressure and generalized feeling. She reports earlier today noting increased palpitations which persisted throughout the day. She does have a longstanding history of palpitations but endorses that these are more intense and uncomfortable. Additionally she noted that her blood pressure at home was greater than 200 systolic. She denies missing any doses of medications or any known specific provoking factors. Intensity symptoms is moderate. Course has persisted. Similar to prior episodes. No other specific changes in health, exacerbating, or alleviating factors identified. Patient reports taking extra metoprolol prior to coming to the emergency department as well as Xanax. Onset (ago): hour(s) Duration: intermittent Severity: moderate Arrhythmia history: other Associated symptoms: Reports other Review of Systems General: Reports: 10 or more systems reviewed and unremarkable except in HPI and below PFSH ED PFSH: Medical History Hypercholesteremia Hypertension Lipoma of anterior chest wall Ureterolithiasis Surgical History H/O: hysterectomy History of carpal tunnel surgery Family History Other CAD (coronary artery disease) Social History Smoking and tobacco status: never smoked Alcohol intake: never Physical Exam Const: COMMON NORMALS: alert GENERAL APPEARANCE: cooperative and well developed HENMT: COMMON NORMALS: normocephalic and atraumatic HEAD & SCALP: normocephalic and atraumatic Eye: COMMON NORMALS: conjunctivae normal CONJUNCTIVA: Yes conjunctivae normal SCLERA: sclerae normal Neck/C-Spine: COMMON NORMALS: supple GENERAL: Yes trachea midline Resp: COMMON NORMALS: normal respiratory effort and clear to auscultation bilaterally EFFORT & INSPECTION: Yes able to speak in complete sentences AUSCULTATION: clear to auscultation bilaterally Cardio: COMMON NORMALS: regular rate and regular rhythm RATE: regular rate RHYTHM: regular rhythm GI: COMMON NORMALS: Soft to palpation PALPATION: Yes Soft to palpation and No Tenderness to palpation present (GI) PERCUSSION: normal to percussion Extremity: GENERAL: Yes normal exam except as noted and No edema Neuro: COMMON NORMALS: moves all extremities SENSORIUM/ORIENTATION: Yes alert and No Orientation impaired Psych: COMMON NORMALS: mental status grossly normal and Normal thought process present THOUGHT PROCESS: Normal thought process present Course ED course: - Patient was seen and evaluated by me at bedside - Patient placed on cardiac monitors, IV access obtained - Initial evaluation notable for exams above. - Labs and xrays personally interpreted by me. EKG initial showed sinus rhythm with PACs. Subsequent showing sinus rhythm. Neither demonstrate STEMI. -Antiemetic ordered - Labs notable for mild leukocytosis. Normal hemoglobin. Metabolic panel without acute derangement to explain symptoms. Delta troponin negative. - Imaging notable for no lobar consolidation or pneumothorax on chest x-ray -Patient had improvement which was sustained in blood pressure without further ED intervention perhaps secondary to medications taken at home. - Upon serial reexamination after treatment the patient was improved -Recent stress test reviewed. - Based on patient history, evaluation, and testing as interpreted the most likely cause of the patient's condition is palpitations and hypertension of unclear etiology - The results of ED evaluation were discussed with the patient including possible disposition options. I do think that additional testing would occur in the inpatient setting. Modifications to patient's medication regimen are challenging given that she took extra medication prior to coming to the ER. I discussed prescriptions and/or symptomatic cares (if applicable) including appropriate and responsible use, followup plan, and return precautions. The patient verbalized understanding and felt safe for discharge. - Patient discharged in satisfactory condition. Note: Click bubbles or prepopulated hughes in note writing are used for assistance with data collection and billing and are inherently more limited than narrative and other text portions of this note. Please use narrative for additional clinical history and defer to narrative/free test for any case of contradictory information. If information appears in only free text or click bubble it should be considered present or absent as reported. Please contact note automobile and property underwriter for clarifications of clinical information or contradictory information. MDM is a brief summary, contradictory or erroneous seeming information should be clarified and full note should be reviewed. Vital Signs: Vital signs: Vital Signs Temperature 96.6 F L 03/01/22 22:04 Pulse Rate 52 L 03/02/22 02:37 Respiratory Rate 18 03/02/22 02:37 Blood Pressure 146/87 03/02/22 02:37 Pulse Oximetry 99 03/02/22 02:37 MDM - Arrhythmia/Palpitations Medical Decision Making 77-year-old lady presenting with palpitations and high blood pressure that improved with treatment prior to coming to the emergency department. Negative ED evaluation. Recent stress test was negative. Satisfactory for outpatient management. Medical Records I reviewed the patient's medical records. Lab Data I reviewed the patient's lab results. : 03/01/22 22:50 03/01/22 22:50 Radiology Impressions Chest X-Ray 03/02/22 00:00 IMPRESSION: No acute findings. Laboratory Results WBC 11.8 10^3/uL (4.0-10.0) H 03/01/22 22:50 RBC 5.04 10^6/uL (4.1-5.3) 03/01/22 22:50 Hgb 15.0 g/dL (11.5-15.3) 03/01/22 22:50 Hct 44.1 % (37.0-47.0) 03/01/22 22:50 MCV 87.5 fl (81-99) 03/01/22 22:50 MCH 29.8 pg (28.0-34.0) 03/01/22 22:50 MCHC 34.0 g/dL (30.0-36.0) 03/01/22 22:50 RDW 13.7 % (12.1-15.1) 03/01/22 22:50 Plt Count 346 10^3/cmm (130-400) 03/01/22 22:50 MPV 10.1 fL (7.4-10.4) 03/01/22 22:50 Neut % (Auto) 66.3 % 03/01/22 22:50 Lymph % (Auto) 26.4 % 03/01/22 22:50 [place] % (Auto) 5.4 % 03/01/22 22:50 Eos % (Auto) 0.8 % 03/01/22 22:50 Baso % (Auto) 0.8 % 03/01/22 22:50 Neut # (Auto) 7.83 10^3/uL (1.8-7.7) H 03/01/22 22:50 Lymph # (Auto) 3.1 10^3/uL (0.8-4.8) 03/01/22 22:50 [place] # (Auto) 0.6 10^3/uL (0.2-0.9) 03/01/22 22:50 Eos # (Auto) 0.1 10^3/uL (0.0-0.8) 03/01/22 22:50 Baso # (Auto) 0.1 10^3/uL (0.0-0.1) 03/01/22 22:50 Nucleated RBC % (auto) 0 % 03/01/22 22:50 Nucleated RBCs # 0.0 /100WBC 03/01/22 22:50 Sodium 140 mmol/L (136-145) 03/01/22 22:50 Potassium 4.3 mmol/L (3.5-5.1) 03/01/22 22:50 Chloride 104 mmol/L (98-107) 03/01/22 22:50 Carbon Dioxide 24 mmol/L (22-29) 03/01/22 22:50 Anion Gap 16.3 (5-19) 03/01/22 22:50 BUN 15 mg/dL (8-23) 03/01/22 22:50 Creatinine 0.8 mg/dL (0.5-0.9) 03/01/22 22:50 GFR Calculation Not Reportable 03/01/22 22:50 Glucose 111 mg/dL (65-115) 03/01/22 22:50 Calculated Osmolality 292 mOsm/kg (285-295) 03/01/22 22:50 Calcium 9.7 mg/dL (8.5-10.5) 03/01/22 22:50 Total Bilirubin 0.6 mg/dL (0.15-1.2) 03/01/22 22:50 AST 22 U/L (0-32) 03/01/22 22:50 ALT 11 U/L (0-33) 03/01/22 22:50 Alkaline Phosphatase 102 IU/L (35-105) 03/01/22 22:50 Troponin T Baseline 7 ng/L (0-10) 03/01/22 22:50 Troponin T 120 Minute 7.02 ng/L (0-10) 03/02/22 00:50 Delta Troponin T 0.02 ABS# (0-10) 03/02/22 00:50 Total Protein 7.9 g/dL (6.6-8.7) 03/01/22 22:50 Albumin 4.5 g/dL (3.5-5.2) 03/01/22 22:50 Globulin 3.4 g/dL (1.3-4.6) 03/01/22 22:50 TSH 3.70 uIU/mL (0.27-4.20) 03/01/22 22:50 Discharge Plan Discharge Patient Disposition: Home Clinical Impression: Palpitations, Hypertension Condition: Stable Prescriptions: No Action Xanax 0.25 mg tablet 0.25 mg PO BID PRN (Reason: anxiety) Qty: 40 1RF atorvastatin 10 mg tablet 10 mg PO BEDTIME 0RF lisinopril 20 mg tablet 20 mg PO BEDTIME 0RF aspirin 81 mg Tablet,Delayed Release (Dr/Ec) 81 mg PO DAILY Qty: 30 0RF metoprolol tartrate 50 mg Tablet 50 mg PO BID@0900,2100 Qty: 60 0RF amoxicillin-pot clavulanate 875-125 mg Tablet 1 tab PO BID Qty: 10 0RF Discharge Orders: Discharge ED (Routine); Ordered 03/02/22 Ordered By: Paulo Redd Referrals: Gary Wyatt MD [Primary Care Provider] - Discharge Diet: Usual diet Discharge Activity: Increase activity as tolerated Patient Instructions: Heart Palpitations (ED), Hypertension (ED) Activity Restrictions/Additional Instructions: Thank you for visiting the emergency department. You were seen and evaluated for palpitations and high blood pressure. The exact cause of the symptoms is unclear however they improved without further ED treatment. Please follow-up with your primary care provider and cardiology. I will message case management for follow-up with cardiology. Please return to the emergency department for recurrent symptoms or anything else that you are concerned about and feel needs emergency department evaluation. Coding Level of Care Code ED Home Demonstration Agent for Omid Fwdevi Exam Comprehensive
--- NOTE | 2022-03-01 22:26 | ECG_ITS ---
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 Measurements Intervals [place] Rate: 74 P: 45 [place]: 124 QRS: 63 QRSD: 79 T: 49 QT: 375 QTc: 417 Interpretive Statements SINUS RHYTHM WITH OCCASIONAL SUPRAVENTRICULAR PREMATURE COMPLEXES Compared to ECG 02/14/2022 15:10:39 No significant changes Electronically Signed On 03-03-2022 12:13:37 CDT by Mike Sanches M.D. [id number] f
--- NOTE | 2022-03-01 22:41 | PC.NURSE ---
EKG was already done by nurse.
[2022-03-01 22:57] LABS: Basophils # 0.1 10^3/uL (0.0-0.1); Basophils % 0.8 %; Eosinophils # 0.1 10^3/uL (0.0-0.8); Eosinophils % 0.8 %; Hematocrit 44.1 % (37.0-47.0); Lymphocytes # 3.1 10^3/uL (0.8-4.8); Lymphocytes % 26.4 %; Mean Corpuscular Hemoglobin 29.8 pg (28.0-34.0); Mean Corpuscular Volume 87.5 fl (81-99); Mean Platelet Volume 10.1 fL (7.4-10.4); Monocytes # 0.6 10^3/uL (0.2-0.9); Monocytes % 5.4 %; Neutrophils # 7.83 10^3/uL (1.8-7.7); Neutrophils % 66.3 %; Nucleated Red Blood Cells % 0 %; Platelet Count 346 10^3/cmm (130-400); Red Blood Count 5.04 10^6/uL (4.1-5.3); Red Cell Distribution Width 13.7 % (12.1-15.1); White Blood Count 11.8 10^3/uL (4.0-10.0)
[2022-03-01 23:15] LABS: Troponin(5th) Baseline 7 ng/L (0-10)
[2022-03-01 23:18] VITALS: BP 152/75; PULSE 55; RESP 13; O2SAT 98
[2022-03-01 23:22] LABS: Alanine Aminotransferase 11 U/L (0-33); Albumin Level 4.5 g/dL (3.5-5.2); Alkaline Phosphatase 102 IU/L (35-105); Anion Gap 16.3 (5-19); Aspartate Amino Transferase 22 U/L (0-32); Blood Urea Nitrogen 15 mg/dL (8-23); Calcium 9.7 mg/dL (8.5-10.5); Carbon Dioxide 24 mmol/L (22-29); Chloride 104 mmol/L (98-107); Globulin 3.4 g/dL (1.3-4.6); Glucose 111 mg/dL (65-115); Osmolality Calculated 292 mOsm/kg (285-295); Potassium 4.3 mmol/L (3.5-5.1); Sodium 140 mmol/L (136-145); Total Bilirubin 0.6 mg/dL (0.15-1.2); Total Protein 7.9 g/dL (6.6-8.7)
--- NOTE | 2022-03-02 | XRR_ITS ---
PROCEDURE INFORMATION: Exam: XR Chest Exam date and time: 03/02/2022 12:07 AM Age: 77 years old Clinical indication: Other: Palpatations TECHNIQUE: Imaging protocol: Radiologic exam of the chest. Views: 1 view. COMPARISON: CR XR chest 1V portable [id number] 02/14/2022 12:11 PM FINDINGS: Lungs: Unremarkable. No consolidation. Pleural spaces: Unremarkable. No pleural effusion. No pneumothorax. Heart/Mediastinum: Unremarkable. No cardiomegaly. Bones/joints: Unremarkable. XR/XR chest 1V portable [id number] IMPRESSION: No acute findings.
--- NOTE | 2022-03-02 00:26 | ECG_ITS ---
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 Measurements Intervals [place] Rate: 50 P: -3 NC: 121 QRS: 63 QRSD: 84 T: 61 QT: 414 QTc: 379 Interpretive Statements SINUS BRADYCARDIA WITH SINUS ARRHYTHMIA Compared to ECG 02/14/2022 15:10:39 Sinus rhythm no longer present Electronically Signed On 03-03-2022 12:27:52 CDT by Mike Sanches M.D. [email or web address] medical [email or web address]/store/[id number]
[2022-03-02 01:14] LABS: Troponin 5 2HR 7.02 ng/L (0-10)
[2022-03-02 01:18] LABS: Troponin 5 2HR Delta 0.02 ABS# (0-10)
[2022-03-02 01:43] VITALS: PULSE 51; O2SAT 100
[2022-03-02 02:37] VITALS: BP 146/87; PULSE 52; RESP 18; O2SAT 99
--- NOTE | 2022-03-02 07:49 | PC.SOCIAL ---
Addendum entered by Noa Addison 05/17/22 08:55: Patient had a follow up appointment scheduled with [facility] - patient did attend appointment. Addendum entered by Noa Addison 03/08/22 18:18: Patient has a follow up appointment scheduled for Saturday April 30, 2022 a 12:[address] Alvarado at [facility]. Clinic will call patient with appointment information. Original Note: Cardiology F/u Consult received for cardiology follow-up. CM sent message to cardiology office requesting follow up appt. Clinic will contact patient with appointment date/time.
== END 2022-03-02 02:41 | disposition home or self-care (01) ==
PROVIDERS: Emergency Provider Emergency Medicine; PCP Family Medicine
DX: R00.2 Palpitations (principal); I10 Essential (primary) hypertension; Z79.82 Long term (current) use of aspirin
CPT/HCPCS: 71045; 80053; 84443; 84484; 85025; 93005; 99284

== ENCOUNTER → 2022-03-06 13:27 | Outpatient (BNVA) | payer MEDICARE, SELFPAY | PROVIDERS: PCP Family Medicine; Visit Provider Internal Medicine Cardiovascular Disease | DX: R00.2 Palpitations (principal); I49.8 Other specified cardiac arrhythmias; I49.3 Ventricular premature depolarization; I49.1 Atrial premature depolarization | CPT/HCPCS: 93225 ==

== ENCOUNTER 2022-04-02 22:38 | Observation (INO) | payer MEDICARE, SELFPAY ==
--- NOTE | 2022-04-02 22:39 | XRR_ITS ---
PROCEDURE INFORMATION: Exam: XR Chest Exam date and time: 04/02/2022 11:53 PM Age: 77 years old Clinical indication: Pain; Chest pressure; Patient HX: C/O palpitations. ; Additional info: Cp TECHNIQUE: Imaging protocol: Radiologic exam of the chest. Views: 1 view. COMPARISON: CR (CHEST, ) 03/02/2022 12:07 AM FINDINGS: Lungs: No consolidation. Pleural spaces: Unremarkable. No pleural effusion. No pneumothorax. Heart/Mediastinum: No cardiomegaly. Bones/joints: No acute fracture. XR/XR chest 1V portable [id number] IMPRESSION: No acute findings.
--- NOTE | 2022-04-02 22:40 | ECG_ITS ---
[facility] Test Date: 2022-04-02 Pat Name: Aida Dhillon Department: Room: Gender: Female Manager Online: : 1945 Requested By: Kath Keen Order Number: [id number] Lul MD: Geraldine Eastman M.D. Measurements Intervals [place] Rate: 82 P: 88 MS: 139 QRS: 87 QRSD: 86 T: 83 QT: 339 QTc: 396 Interpretive Statements SINUS RHYTHM WITH FREQUENT SUPRAVENTRICULAR PREMATURE COMPLEXES Compared to ECG 03/02/2022 00:12:10 Sinus bradycardia no longer present Sinus arrhythmia no longer present Electronically Signed On 04-03-2022 21:09:30 CDT by Geraldine Eastman M.D. [id number]
[2022-04-02 22:55] VITALS: BP 183/86; PULSE 76; RESP 18; TEMP 37; O2SAT 100; BMI 27.3
[2022-04-02 23:11] LABS: Basophils # 0.1 10^3/uL (0.0-0.1); Basophils % 0.8 %; Eosinophils # 0.2 10^3/uL (0.0-0.8); Eosinophils % 1.9 %; Hematocrit 45.4 % (37.0-47.0); Hemoglobin 15.1 g/dL (11.5-15.3); Lymphocytes # 4.8 10^3/uL (0.8-4.8); Lymphocytes % 44.7 %; Mean Corpuscular HGB Conc 33.3 g/dL (30.0-36.0); Mean Corpuscular Volume 90.1 fl (81-99); Mean Platelet Volume 10.1 fL (7.4-10.4); Monocytes # 0.8 10^3/uL (0.2-0.9); Monocytes % 7.4 %; Neutrophils # 4.83 10^3/uL (1.8-7.7); Neutrophils % 44.7 %; Nucleated Red Blood Cells % 0 %; Platelet Count 342 10^3/cmm (130-400); Red Blood Count 5.04 10^6/uL (4.1-5.3); Red Cell Distribution Width 13.7 % (12.1-15.1); White Blood Count 10.8 10^3/uL (4.0-10.0)
[2022-04-02 23:27] LABS: Alanine Aminotransferase 12 U/L (0-33); Albumin Level 4.2 g/dL (3.5-5.2); Alkaline Phosphatase 99 IU/L (35-105); Aspartate Amino Transferase 22 U/L (0-32); Blood Urea Nitrogen 18 mg/dL (8-23); Calcium 9.9 mg/dL (8.5-10.5); Carbon Dioxide 23 mmol/L (22-29); Chloride 103 mmol/L (98-107); Globulin 3.4 g/dL (1.3-4.6); Glucose 115 mg/dL (65-115); Osmolality Calculated 291 mOsm/kg (285-295); Sodium 139 mmol/L (136-145); Total Bilirubin 0.5 mg/dL (0.15-1.2); Total Protein 7.6 g/dL (6.6-8.7); Troponin(5th) Baseline 8 ng/L (0-10)
--- NOTE | 2022-04-02 23:45 | ED_ITS ---
HPI - Arrhythmia/Palpitations General: Chief Complaint: Arrhythmia/Palpitations Stated Complaint: Faintish/Heart palpitations Time Seen by Provider: 04/02/22 23:08 Source: patient Limitations: no limitations History of Present Illness: 77-year-old female who states she been having a history of irregular heartbeats she states she wore a Holter monitor is not follow-up with cardiology states that yesterday and today she has had increased palpitations feel like her heart was skipping does cause her some anxiety she takes Xanax at home she took a Xanax last night she felt improved but then felt worse today. States she is felt jittery and like she may faint she denies any pain denies any shortness of breath denies any diaphoresis or nausea. Associated symptoms: Deny nausea or vomiting Review of Systems Const: Denies: fever(s), chills, body aches or change in appetite Eyes: Denies: blurry vision or eye discomfort ENMT: Denies: throat pain or dental pain Card: Reports: palpitations; Denies: chest pain Resp: Denies: dyspnea GI: Denies: abdominal pain, nausea, vomiting or diarrhea : Denies: dysuria Musc: Denies: neck pain or back pain Skin/Breast: Denies: rash Neuro: Denies: headache(s) Psych: Denies: depression Kana/Lymph: Denies: easy bruising All/Imm: Denies: urticaria PFSH ED PFSH: Medical History Hypercholesteremia Hypertension Lipoma of anterior chest wall Ureterolithiasis Surgical History H/O: hysterectomy History of carpal tunnel surgery Family History Other CAD (coronary artery disease) Social History Smoking and tobacco status: never smoked Alcohol intake: never Physical Exam Const: COMMON NORMALS: no acute distress, patient oriented x3 and healthy appearing HENMT: COMMON NORMALS: normocephalic and atraumatic HEAD & SCALP: normoc ephalic and atraumatic Eye: COMMON NORMALS: Equal, round and reactive pupils present and EOMs intact bilaterally PUPIL: Yes Equal, round and reactive pupils present Neck/C-Spine: COMMON NORMALS: full ROM and supple Chest: COMMONS NORMALS: normal inspection of the chest and normal palpation of entire chest wall Resp: COMMON NORMALS: normal respiratory effort, No retractions, No use of accessory muscles and clear to auscultation bilaterally AUSCULTATION: clear to auscultation bilaterally Cardio: COMMON NORMALS: regular rate, regular rhythm and No murmurs present (Cardio) RATE: regular rate RHYTHM: regular rhythm GI: COMMON NORMALS: Normal to inspection, nondistended, normoactive bowel sounds present, Soft to palpation, non-tender and no masses PALPATION: Yes Soft to palpation Extremity: COMMON NORMALS: normal to inspection and full ROM Neuro: COMMON NORMALS: patient oriented x3, moves all extremities and no focal motor deficits Psych: COMMON NORMALS: mental status grossly normal, Normal thought process present and cooperative THOUGHT PROCESS: Normal thought process present Skin: COMMON NORMALS: no rashes or lesions noted and no wounds GENERAL SKIN EXAM: no rashes or lesions noted Course Vital Signs: Vital signs: Vital Signs Temperature 98.6 F 04/02/22 22:55 Pulse Rate 117 H 04/03/22 01:13 Respiratory Rate 14 04/03/22 01:13 Blood Pressure 157/114 04/03/22 01:13 Pulse Oximetry 98 04/03/22 01:13 Oxygen Delivery Me thod 04/03/22 01:13 MDM - Arrhythmia/Palpitations Medical Decision Making Patient presents here with palpitations she does have a tacky bradycardia dysrhythmia here she has had some near syncope I spoke to cardiology Dr. Eastman will admit at this time and observe. Lab Data : 04/02/22 23:05 04/02/22 23:05 Laboratory Results WBC 10.8 10^3/uL (4.0-10.0) H 04/02/22 23:05 RBC 5.04 10^6/uL (4.1-5.3) 04/02/22 23:05 Hgb 15.1 g/dL (11.5-15.3) 04/02/22 23:05 Hct 45.4 % (37.0-47.0) 04/02/22 23:05 MCV 90.1 fl (81-99) 04/02/22 23:05 MCH 30.0 pg (28.0-34.0) 04/02/22 23:05 MCHC 33.3 g/dL (30.0-36.0) 04/02/22 23:05 RDW 13.7 % (12.1-15.1) 04/02/22 23:05 Plt Count 342 10^3/cmm (130-400) 04/02/22 23:05 MPV 10.1 fL (7.4-10.4) 04/02/22 23:05 Neut % (Auto) 44.7 % 04/02/22 23:05 Lymph % (Auto) 44.7 % 04/02/22 23:05 [place] % (Auto) 7.4 % 04/02/22 23:05 Eos % (Auto) 1.9 % 04/02/22 23:05 Baso % (Auto) 0.8 % 04/02/22 23:05 Neut # (Auto) 4.83 10^3/uL (1.8-7.7) 04/02/22 23:05 Lymph # (Auto) 4.8 10^3/uL (0.8-4.8) 04/02/22 23:05 [place] # (Auto) 0.8 10^3/uL (0.2-0.9) 04/02/22 23:05 Eos # (Auto) 0.2 10^3/uL (0.0-0.8) 04/02/22 23:05 Baso # (Auto) 0.1 10^3/uL (0.0-0.1) 04/02/22 23:05 Nucleated RBC % (auto) 0 % 04/02/22 23:05 Nucleated RBCs # 0.0 /100WBC 04/02/22 23:05 D-Dimer 0.61 ug/mIFEU (0-0.59) H 04/02/22 23:48 Sodium 139 mmol/L (136-145) 04/02/22 23:05 Potassium 4.0 mmol/L (3.5-5.1) 04/02/22 23:05 Chloride 103 mmol/L (98-107) 04/02/22 23:05 Carbon Dioxide 23 mmol/L (22-29) 04/02/22 23:05 Anion Gap 17.0 (5-19) 04/02/22 23:05 BUN 18 mg/dL (8-23) 04/02/22 23:05 Creatinine 0.8 mg/dL (0.5-0.9) 04/02/22 23:05 GFR Calculation Not Reportable 04/02/22 23:05 Glucose 115 mg/dL (65-115) 04/02/22 23:05 Calculated Osmolality 291 mOsm/kg (285-295) 04/02/22 23:05 Calcium 9.9 mg/dL (8.5-10.5) 04/02/22 23:05 Total Bilirubin 0.5 mg/dL (0.15-1.2) 04/02/22 23:05 AST 22 U/L (0-32) 04/02/22 23:05 ALT 12 U/L (0-33) 04/02/22 23:05 Alkaline Phosphatase 99 IU/L (35-105) 04/02/22 23:05 Troponin T Baseline 8 ng/L (0-10) 04/02/22 23:05 Total Protein 7.6 g/dL (6.6-8.7) 04/02/22 23:05 Albumin 4.2 g/dL (3.5-5.2) 04/02/22 23:05 Globulin 3.4 g/dL (1.3-4.6) 04/02/22 23:05 EKG Data EKG 1: I personally reviewed and interpreted this EKG as follows: EKG interpretation date: 04/02/22 EKG interpretation time: 22:50 Interpretation: sinus rhythm with occasion premature complexes hr [address] or t wave abnormalities qrs 86 qtc 377 Discharge Plan Discharge Patient Disposition: Placed in Observation Clinical Impression: Near syncope Arrhythmia Qualifiers: Arrhythmia type: unspecified cardiac arrhythmia Qualified Code(s): I49.9 - Cardiac arrhythmia, unspecified Coding Level of Care Code ED Airline Radio Operator for Chg Fwd Exam Comprehensive
[2022-04-03] VITALS (90 sets, daily range): BP systolic 107–180; BP diastolic 53–114; PULSE 42–145; RESP 12–28; TEMP 36.4–36.7; O2SAT 92–100
[2022-04-03] MEDS: sodium chloride 0.9% 500 ML 999 ML IV
[2022-04-03] MEDS: midazolam 1 mg/mL INJ 2 mL 0.5 MG IVP
[2022-04-03 00:03] LABS: D Dimer 0.61 ug/mIFEU (0-0.59)
--- NOTE | 2022-04-03 00:40 | ECG_ITS ---
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 Measurements Intervals [place] Rate: 116 P: 52 WI: 137 QRS: 84 QRSD: 76 T: 54 QT: 356 QTc: 495 Interpretive Statements SINUS RHYTHM WITH FREQUENT PACS AND SHORT RUNS OF PAROXYSMAL ATRIAL TACHYCARDIA MODERATE ST DEPRESSION [0.05+ mV ST DEPRESSION] Compared to ECG 04/02/2022 22:50:36 ST (T wave) deviation now present Sinus rhythm no longer present Electronically Signed On 04-04-2022 6:39:41 CDT by Geraldine Eastman M.D. [email or web address]/[id number]
[2022-04-03] MEDS: metoprolol tartrate 50 mg Tablet PO (00:54)
[2022-04-03] MEDS: dilTIAZem 30 mg Tablet PO (00:54)
[2022-04-03 01:37] LABS: Troponin 5 2HR 7.86 ng/L (0-10)
[2022-04-03 01:46] LABS: Troponin 5 2HR Delta -0.14 ABS# (0-10)
[2022-04-03 03:55] LABS: Magnesium 1.8 mg/dL (1.7-2.3)
[2022-04-03 04:05] LABS: Thyroid Stimulating Hormone 5.43 uIU/mL (0.27-4.20)
--- NOTE | 2022-04-03 04:17 | PM.HP ---
Providers/Chief Complaint Primary Care Provider: Gary Wyatt MD Chief Complaint: Faintish/Heart palpitations History of Present Illness Aida Dhillon is a 77 year old female past medical history of hypertension, hypercholesterolemia, palpitations patient is to the ER today for palpitations feeling like her heart was skipping beats. She states that this causes her anxiety and therefore he took Xanax at home. She did feel better last night as well after taking Xanax for the same but today felt worse. She felt jittery and had a sensation of fainting and therefore decided to come to the hospital. Denies any shortness of breath, denies diaphoresis, chest pain, nausea, vomiting, diarrhea, constipation at this time. Of note patient recently did wear a Holter monitor which resulted on 03/06/2022 showing baseline normal sinus rhythm with 317 ventricular ectopics and 6490 supraventricular ectopics. No significant pauses or bradycardias noted. Patient is currently on Metroprolol tartrate 50 twice daily at home. She also recently had a stress test done in January 2022 which was normal with no evidence of ischemia. Normal LVEF. ED course: Blood pressure 157/114 on arrival, respiratory 14, pulse 117, temperature 98.6, saturating 98% on room air. EKG showed sinus rhythm with occasional PVCs heart rate [address] or T wave abnormalities. Rhythm strips were sent to Dr. Eastman by ER physician. He is consulted. Dr. Eastman has recommended admission at this time for tachybradycardia dysrhythmia. Patient to be observed overnight. Medications/Allergies Home Medications Medication Instructions Recorded Confirmed Last Taken Type atorvastatin 10 mg tablet 10 mg PO BEDTIME 02/14/22 02/19/22 02/13/22 History lisinopril 20 mg tablet 20 mg PO BEDTIME 02/14/22 02/19/22 02/13/22 History amoxicillin 875 mg-potassium 1 tab PO BID #10 tabs 02/16/22 02/19/22 Unknown Rx clavulanate 125 mg tablet aspirin 81 mg tablet,delayed 81 mg PO DAILY #30 tabs 02/16/22 02/19/22 Unknown Rx release metoprolol tartrate 50 mg tablet 50 mg PO BID@0900,2100 #60 tabs 02/16/22 02/19/22 Unknown Rx alprazolam 0.25 mg tablet (Xanax) 0.25 mg PO BID PRN anxiety #40 tabs 03/30/22 Unknown Rx Allergies Allergy/AdvReac Type Severity Reaction Status Date / Time No Known Allergies Allergy Verified 02/19/22 13:44 PFSH Acute PFSH: Medical History Hypercholesteremia Hypertension Lipoma of anterior chest wall Ureterolithiasis Surgical History H/O: hysterectomy History of carpal tunnel surgery Family History Other CAD (coronary artery disease) Social History Smoking and tobacco status: never smoked Alcohol intake: never Vitals/I&O/Wt Last Vital Signs Temp 98.6 F 04/02/22 22:55 Pulse 108 H 04/03/22 02:15 Resp 14 04/03/22 01:13 BP 110/80 04/03/22 02:15 Pulse Ox 96 04/03/22 02:15 O2 Del Method 04/03/22 01:13 04/02/22 04/02/22 04/03/22 14:59 22:59 06:59 Intake Total 500 / 500 Balance 500 / 500 Weight last 48 hrs Weight 70.125 kg Physical Exam Narrative: General: Alert oriented x3, patient seen laying in bed appearing comfortable at this time. HEENT: Normocephalic, atraumatic, EOMI, breathing normally on room air saturating 96% Cardio: Tachycardic at times, few beats of SVT, normal S1-S2, Respiratory: Clear to auscultation bilaterally, good bilateral air entry GI: Abdomen soft, nontender, nondistended, bowel sounds + Extremities: No lower extremity edema noted. Data : 04/02/22 23:05 04/02/22 23:05 A&P Assessment and plan (1) Near syncope: Status: Acute (2) Palpitations: Status: Acute (3) Hypertension: Status: Acute (4) Anxiety: Status: Acute Plan #Palpitations with dizziness and lightheadedness possibly 2/2 tachy argenis arythmia #Hypertension, hypercholesterolemia #Anxiety - Continue metoprolol 50 twice daily as per recs from cardio. Case was discussed with Dr. Eastman by ER doc. He recommended to continue lopressor 50 TID and consider addition of cardizem 30 TID cautiously. One time cardizem 30 dose given in ER. There is consideration of pacemaker placement. ? Recently had a stress test and echo 01/2022 ? Check TSH ? Cardiology consulted. Dr. Eastman will see patient in AM. ? Continue to monitor on telemetry overnight ? Check potassium, magnesium ? Check troponins ? Continue alprazolam 0.5 twice daily as needed, aspirin, atorvastatin ? Hold lisinopril ? Home medications will need to be confirmed with the patient's pharmacy Full code DVT prophylaxis: Heparin subcu Daughter present at bedside. All questions answered. Attestations Medical Necessity Statement*: Admit for observation overnight for palpitations. To be evaluated by cardiology in a.m. Coding Level of Care Code Acute Cullet Washer for Chg Fwd Diagnoses Near syncope R55 Palpitations R00.2 Hypertension I10 Anxiety F41.9
[2022-04-03] MEDS: sodium chloride 0.9% 1,000 ML 75 ML IV ×2 (04:30→17:28)
[2022-04-03] MEDS: heparin 5,000 unit/mL INJ 1 mL 5000 UNIT SUBCUT ×2 (04:30→16:33)
--- NOTE | 2022-04-03 04:40 | ECG_ITS ---
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 Measurements Intervals [place] Rate: 87 P: 56 WI: 142 QRS: 73 QRSD: 86 T: 60 QT: 338 QTc: 407 Interpretive Statements SINUS BRADYCARDIA WITH FREQUENT SUPRAVENTRICULAR PREMATURE COMPLEXES and short runs of PATs LOW QRS VOLTAGE IN PRECORDIAL LEADS [QRS DEFLECTION < 1.0 mV IN CHEST LEADS] ABNORMAL RHYTHM ECG Compared to ECG 04/03/2022 01:13:06 Low QRS voltage now present Sinus tachycardia no longer present ST (T wave) deviation no longer present Electronically Signed On 04-04-2022 6:42:51 CDT by Geraldine Eastman M.D. [id number]
[2022-04-03 05:00] LABS: Troponin 5 6HR 8.33 ng/L (0-10)
[2022-04-03 05:11] LABS: Troponin 5 6HR Delta 0.33 ng/L (0-12)
[2022-04-03] MEDS: ALPRAZolam 0.5 mg Tablet 0.25 MG PO (05:20)
--- NOTE | 2022-04-03 07:07 | PC.NURSE ---
PT PLACED ON CONTINUOUS SPO2, NIBP, AND CM AFTER PT WAS USING BATHROOM. PT IS IN NAD. PT IS AWAKE ALERT AND ANSWERING QUESTIONS APPROPRIATELY. PT DENIES ANY NEEDS AT THIS TIME.
--- NOTE | 2022-04-03 07:21 | P.CONIM_ITS ---
Providers/Reason For Consult Consulting Physician/Specialty*: ERIC Eastman MD/cardiology/ Reason for Consult*: Tachybradycardia arrhythmia Requesting Physician: Dr. Tilley/Dr. Hampton Attending Physician: Yolanda Hampton MD Primary Care Provider: Gary Wyatt MD History of Present Illness History of Present Illness Aida Dhillon is a 77 year old female with a history of hypertension, dyslipidemia and palpitations, presenting with complaints of increasing palpitations and near syncopal episodes. This is the third time that skylar RUSTAM junior Dhillon presenting to our hospital with a similar complaints. She was admitted to the hospital on 14 February with features of accelerated hypertension and frequent episodes of short runs of PAT's. She was treated with antihypertensive medications including metoprolol 50 mg p.o. twice daily. She had a Myocardial perfusion imaging during that hospital admission which was essentially unremarkable. She presented to the emergency room on 01 March again with signs cleaner similar complaints. Her blood pressure was running in the 200 range at home at that time. Her blood pressure spontaneously returned to the baseline while being in the emergency room. She was discharged home on the previous medications. She started having increasing episodes of fluttering in the chest and occasional episodes of dizziness/near syncopal episodes. She felt like the heart might be beating too slow. For these complaints, she came to the emergency room last evening. She was given metoprolol 50 mg and diltiazem 30 mg last night. Her heart rate seems to be improving. She had a Holter monitor recently which revealed a frequent episodes of supraventricular ectopics in the form of isolated beats and short runs of PAT's. 6% of the total heartbeats were found to be supraventricular ectopics. She had occasional ventricular ectopics, accounting for less than 1% of total heartbeats. She also had some few short runs of nonsustained ventricular tachycardia's. She denies any chest pain or chest tightness. She has not had any syncopal episodes. However she had several episodes of near syncope in the past. Review of Systems Narrative: CONSTITUTIONAL: No fever or chills. EYES: No blurring of vision or other visual disturbances lately. ENT: No hoarseness of voice, auditory disturbances or sore throat. CARDIOVASCULAR: As mentioned above. RESPIRATORY: No significant cough. GASTROINTESTINAL: No hematemesis or melena. GENITOURINARY: No dysuria or hematuria. INTEGUMENTARY: No skin rashes or history of skin cancer. NEURO: As mentioned above PSYCHIATRIC: No history of psychosis or major depression. HEMATOLOGIC: No bleeding disorders or significant anemia. ENDOCRINE: No history of polyuria or polydipsia. MUSCULOSKELETAL: No recent joint pain or swelling. ALLERGY/IMMUNOLOGY: As mentioned above. Medications/Allergies Home Medications Medication Instructions Recorded Confirmed Last Taken Type atorvastatin 10 mg tablet 10 mg PO BEDTIME 02/14/22 04/03/22 04/02/22 History lisinopril 20 mg tablet 20 mg PO BEDTIME 02/14/22 04/03/22 04/02/22 History alprazolam 0.25 mg tablet (Xanax) 0.25 mg PO BID PRN anxiety #40 tabs 03/30/22 04/03/22 04/02/22 Rx aspirin 81 mg tablet,delayed 81 mg PO DAILY@08 04/03/22 04/03/22 04/02/22 History release metoprolol tartrate 25 mg tablet 12.5 mg PO BID 04/03/22 04/03/22 04/02/22 History Allergies Allergy/AdvReac Type Severity Reaction Status Date / Time No Known Allergies Allergy Verified 04/03/22 07:27 Current Medications Generic Name Dose Route Start Last Admin Trade Name Freq PRN Reason Stop Dose Admin Alprazolam 0.25 mg 04/03/22 03:39 04/03/22 05:20 Alprazolam 0.5 Mg Tablet PO 0.25 mg BID PRN Administration anxiety Heparin Sodium (Porcine) 5,000 unit 04/03/22 03:45 04/03/22 04:30 Heparin 5,000 Unit/Ml Inj 1 Ml SUBCUT 5,000 unit Q12H CLEO Administration Sodium Chloride 1,000 mls @ 75 mls/hr 04/03/22 03:45 04/03/22 04:30 Sodium Chloride 0.9% IV 75 mls/hr .[id number] CLEO Administration PFSH Acute PFSH: Medical History Hypercholesteremia Hypertension Lipoma of anterior chest wall Ureterolithiasis Surgical History H/O: hysterectomy History of carpal tunnel surgery Family History Other CAD (coronary artery disease) Social History Smoking and tobacco status: never smoked Alcohol intake: never Vitals/I&O/Wt Last Vital Signs Temp 98.6 F 04/02/22 22:55 Pulse 100 04/03/22 05:00 Resp 12 04/03/22 05:00 BP 180/86 04/03/22 05:00 Pulse Ox 99 04/03/22 05:00 O2 Del Method 04/03/22 05:29 04/02/22 04/03/22 04/03/22 22:59 06:59 14:59 Intake Total 500 / 500 Balance 500 / 500 Weight last 48 hrs Weight 154 lb 9.6 oz Physical Exam Narrative: GENERAL: The patient is alert and oriented times three. Not in any acute distress. [] HEENT: No significant pallor, icterus or lymphadenopathy.Oral cavity: There are no mucous membrane lesions. NECK: Trachea appears to be central. No masses noted. No JVD or thyromegaly appreciated. RESPIRATORY: Chest is symmetrical. No intercostals muscle retraction or any accessory muscle activation. There is no chest wall tenderness. Breath sounds are heard bilaterally. No rales or rhonchi heard. No evidence of any consolidation. [] BREASTS: Deferred. [] HEART: The heart sounds are normal. No S3 or S4. [No significant murmurs]. No pericardial rub ABDOMEN: No vessel pulsations or distention. No tenderness. No organomegaly appreciated. Bowel sounds are normally heard. : Deferred. RECTAL: Deferred. LYMPHATIC: No lymphadenopathy noted in the neck. EXTREMITIES: No edema or cyanosis. No clubbing. MUSCULOSKELETAL: No acute joint deformities or swelling SKIN: There are no significant rashes or ecchymosis NEUROPSYCHIATRIC: The patient is alert and oriented x3. Appears to be in a good mood. No tremors or rigidity noted. Data : 04/02/22 23:05 04/02/22 23:05 Other Labs: Laboratory Last Values WBC 10.8 10^3/uL (4.0-10.0) H 04/02/22 23:05 RBC 5.04 10^6/uL (4.1-5.3) 04/02/22 23:05 Hgb 15.1 g/dL (11.5-15.3) 04/02/22 23:05 Hct 45.4 % (37.0-47.0) 04/02/22 23:05 MCV 90.1 fl (81-99) 04/02/22 23:05 MCH 30.0 pg (28.0-34.0) 04/02/22 23:05 MCHC 33.3 g/dL (30.0-36.0) 04/02/22 23:05 RDW 13.7 % (12.1-15.1) 04/02/22 23:05 Plt Count 342 10^3/cmm (130-400) 04/02/22 23:05 MPV 10.1 fL (7.4-10.4) 04/02/22 23:05 Neut % (Auto) 44.7 % 04/02/22 23:05 Lymph % (Auto) 44.7 % 04/02/22 23:05 [place] % (Auto) 7.4 % 04/02/22 23:05 Eos % (Auto) 1.9 % 04/02/22 23:05 Baso % (Auto) 0.8 % 04/02/22 23:05 Neut # (Auto) 4.83 10^3/uL (1.8-7.7) 04/02/22 23:05 Lymph # (Auto) 4.8 10^3/uL (0.8-4.8) 04/02/22 23:05 [place] # (Auto) 0.8 10^3/uL (0.2-0.9) 04/02/22 23:05 Eos # (Auto) 0.2 10^3/uL (0.0-0.8) 04/02/22 23:05 Baso # (Auto) 0.1 10^3/uL (0.0-0.1) 04/02/22 23:05 Nucleated RBC % (auto) 0 % 04/02/22 23:05 Nucleated RBCs # 0.0 /100WBC 04/02/22 23:05 D-Dimer 0.61 ug/mIFEU (0-0.59) H 04/02/22 23:48 Sodium 139 mmol/L (136-145) 04/02/22 23:05 Potassium 4.0 mmol/L (3.5-5.1) 04/02/22 23:05 Chloride 103 mmol/L (98-107) 04/02/22 23:05 Carbon Dioxide 23 mmol/L (22-29) 04/02/22 23:05 Anion Gap 17.0 (5-19) 04/02/22 23:05 BUN 18 mg/dL (8-23) 04/02/22 23:05 Creatinine 0.8 mg/dL (0.5-0.9) 04/02/22 23:05 GFR Calculation Not Reportable 04/02/22 23:05 Glucose 115 mg/dL (65-115) 04/02/22 23:05 Calculated Osmolality 291 mOsm/kg (285-295) 04/02/22 23:05 Calcium 9.9 mg/dL (8.5-10.5) 04/02/22 23:05 Magnesium 1.8 mg/dL (1.7-2.3) 04/03/22 01:15 Total Bilirubin 0.5 mg/dL (0.15-1.2) 04/02/22 23:05 AST 22 U/L (0-32) 04/02/22 23:05 ALT 12 U/L (0-33) 04/02/22 23:05 Alkaline Phosphatase 99 IU/L (35-105) 04/02/22 23:05 Troponin T Baseline 8 ng/L (0-10) 04/02/22 23:05 Troponin T 120 Minute 7.86 ng/L (0-10) 04/03/22 01:15 Delta Troponin T -0.14 ABS# (0-10) L 04/03/22 01:15 Troponin T Hi Sens 6Hr 8.33 ng/L (0-10) 04/03/22 04:20 Troponin T Hi Sens 6Hr Delta 0.33 ng/L (0-12) 04/03/22 04:20 Total Protein 7.6 g/dL (6.6-8.7) 04/02/22 23:05 Albumin 4.2 g/dL (3.5-5.2) 04/02/22 23:05 Globulin 3.4 g/dL (1.3-4.6) 04/02/22 23:05 TSH 5.43 uIU/mL (0.27-4.20) H 04/02/22 23:05 Echo: My impression: Echo cardiogram from 02/14/2022 ?Normal left ventricular size and systolic function, EF 71 %. ?Grade I/IV diastolic dysfunction (abnormal relaxation filling ?pattern), normal to mildly elevated filling pressures. ?Normal cardiac chamber sizes. ?No significant valvular abnormalities ?There is no pericardial effusion. ?There are no intracardiac masses. ?No similar previous studies are available for comparison Myocardial perfusion imaging: My impression: MPI from 02/16/2022 1.? Normal myocardial perfusion imaging with no evidence of ischemia. ?2.? Normal LV systolic function Other data: Holter monitor from 03/06/2022 1.? The baseline rhythm was found to be normal sinus with an overall average heart rate of 70 beats per minute.? There were a total of 317 ventricular ectopics and 6490 supraventricular ectopics, comprising 0.31% and 6.42% respectively of the total heartbeats . 2. No significant pauses or bradycardias noted. 3.? The symptom of flutter/skipped beats was found to be associated with supraventricular ectopics/related topics occasionally. 4.? No similar previous studies are available for comparison A&P Assessment and plan (1) Near syncope: Most likely the patient's symptoms are related to the tachybradycardia arrhythmia. She apparently had episodes of tachycardia and bradycardia arrhythmias on the monitor. The heart rate may go into the upper 40s and low 50s and then she has episodes of PAT's with a heart rate in the 140s and 150s. Status: Acute (2) Paroxysmal atrial tachycardia: She has been taking only metoprolol 12.5 mg p.o. twice daily. This may be increased to 25 mg p.o. twice daily. Status: Acute (3) Accelerated hypertension: She may be kept on the lisinopril. The blood pressure needs to be closely monitored. Status: Acute (4) Hypercholesteremia: May continue on the current medications. Status: Acute Plan Patient is to be closely monitored on the telemetry for development of any significant symptomatic bradycardias. If she remains stable with the current medication, she may be discharged home tomorrow on an event monitor. Based on the clinical progress, further recommendations will be made. Thank you for the opportunity to eval this patient make these recommendations Consult Attestations Medical Necessity Statement: Patient requires continued hospital stay for close monitoring and further management Coding Level of Care Code Acute Maintenance Person for Hajag Fwd History Expanded Problem Focused Exam Detailed Medical Decision Making Moderate Complexity Diagnoses Near syncope R55 Paroxysmal atrial tachycardia I47.1 Accelerated hypertension I10 Hypercholesteremia E78.00
--- NOTE | 2022-04-03 07:30 | PC.PHAR ---
pt states she takes care of her own medications-pt state taking the metoprolol tartrate 25mg takes 12.5mg bid filled on 02/13/22 90d/s-rx written on 02/16/22 for 50mg bid from pt states never got that rx-notes are made in the pharmacy comments
[2022-04-03] MEDS: aspirin 81 mg EC Tablet PO (08:45)
--- NOTE | 2022-04-03 08:58 | P.EN_ITS ---
Event Note Event Note: Patient admitted after midnight. Reviewed history with her. Reports she did well after her last hospital stay, until recently when she started having more palpitations. As she was doing well she deferred cardiology follow-up. She also ended up getting a Holter ultimately instead of an event mo nitor. Patient believes at some point she did take 50 mg twice a day of metoprolol as was given in the hospital for control of arrhythmia but she is now definitely taking 12.5 mg twice a day. Will await cardiology consultation for further recommendations. See history and physical done by Dr. Hampton.
--- NOTE | 2022-04-03 10:21 | PC.NURSE ---
VERBAL ORDER FROM DR. VILLA TO ADM PO METOPROLOL EVEN THOUGH INTERMITTENT HR IS BELOW 60 BPM.
[2022-04-03] MEDS: metoprolol tartrate 25 mg Tablet PO ×2 (10:23→20:51)
--- NOTE | 2022-04-03 11:03 | PC.NURSE ---
REPORT CALLED TO SAMANTHA RN IN ICU.
--- NOTE | 2022-04-03 20:41 | PC.NURSE ---
Pt assisted with changing clothes.
[2022-04-03] MEDS: atorvastatin 40 mg Tablet 10 MG PO (20:51)
--- NOTE | 2022-04-03 23:06 | PC.NURSE ---
unable to locate SCD pump at this time. Pt on Heparin subq.
[2022-04-04] VITALS (67 sets, daily range): BP systolic 102–182; BP diastolic 53–85; PULSE 44–78; RESP 13–29; TEMP 36.5–36.6; O2SAT 85–99
[2022-04-04] MEDS: ALPRAZolam 0.5 mg Tablet 0.25 MG PO (00:37)
--- NOTE | 2022-04-04 00:40 | PC.NURSE ---
Pt reports feeling, nervous. Pt tells me that this is not uncommon, and she takes Xanax twice daily. Pt is slightyl hypertensive at 162/79 and appears slightly flushed.
--- NOTE | 2022-04-04 01:54 | PC.NURSE ---
Pt resting quietly in bed with eyes closed. Respirations even and unlabored. Skin is pink and dry.
[2022-04-04] MEDS: heparin 5,000 unit/mL INJ 1 mL 5000 UNIT SUBCUT (03:56)
[2022-04-04 04:59] LABS: Basophils # 0.1 10^3/uL (0.0-0.1); Basophils % 0.9 %; Eosinophils # 0.2 10^3/uL (0.0-0.8); Eosinophils % 2.6 %; Hematocrit 41.6 % (37.0-47.0); Hemoglobin 13.2 g/dL (11.5-15.3); Lymphocytes # 3.7 10^3/uL (0.8-4.8); Mean Corpuscular HGB Conc 31.7 g/dL (30.0-36.0); Mean Corpuscular Hemoglobin 29.9 pg (28.0-34.0); Mean Corpuscular Volume 94.3 fl (81-99); Mean Platelet Volume 10.3 fL (7.4-10.4); Monocytes # 0.6 10^3/uL (0.2-0.9); Neutrophils # 3.81 10^3/uL (1.8-7.7); Neutrophils % 45.1 %; Nucleated Red Blood Cells % 0 %; Platelet Count 288 10^3/cmm (130-400); Red Blood Count 4.41 10^6/uL (4.1-5.3); Red Cell Distribution Width 14.2 % (12.1-15.1); White Blood Count 8.4 10^3/uL (4.0-10.0)
[2022-04-04 05:33] LABS: Alanine Aminotransferase 8 U/L (0-33); Albumin Level 3.7 g/dL (3.5-5.2); Alkaline Phosphatase 81 IU/L (35-105); Aspartate Amino Transferase 18 U/L (0-32); Blood Urea Nitrogen 17 mg/dL (8-23); Calcium 8.7 mg/dL (8.5-10.5); Carbon Dioxide 23 mmol/L (22-29); Chloride 108 mmol/L (98-107); Globulin 2.8 g/dL (1.3-4.6); Glucose 103 mg/dL (65-115); Magnesium 1.7 mg/dL (1.7-2.3); Osmolality Calculated 288 mOsm/kg (285-295); Sodium 138 mmol/L (136-145); Total Bilirubin 0.5 mg/dL (0.15-1.2); Total Protein 6.5 g/dL (6.6-8.7)
[2022-04-04 05:40] LABS: Anion Gap 11.4 (5-19); Potassium 4.4 mmol/L (3.5-5.1)
[2022-04-04] MEDS: sodium chloride 0.9% 1,000 ML 75 ML IV (06:47)
--- NOTE | 2022-04-04 08:55 | PM.PN ---
Subjective Subjective: Patient generally has been doing okay since yesterday. She continues to have the tachybradycardia rhythms on the monitor. The lowest heart rate through the night was in the 40s. Her systolic blood pressure has been running in the 150s and 160s. Denies any chest pain or chest tightness. No unusual shortness of breath. No fever, chills or cough. Medications: Medication Review Details: Current Medications Acetaminophen (Acetaminophen 325 Mg Tablet) 650 mg PO Q6H PRN PRN Reason: Mild/Mod Pain Or Temp >/= 101 Alprazolam (Alprazolam 0.5 Mg Tablet) 0.25 mg PO BID PRN PRN Reason: anxiety Last Admin: 04/04/22 00:37 Dose: 0.25 mg Aspirin (Aspirin 81 Mg Ec Tablet) 81 mg PO DAILY [facility] Last Admin: 04/03/22 08:45 Dose: 81 mg Atorvastatin Calcium (Atorvastatin 40 Mg Tablet) 10 mg PO BEDTIME [facility] Last Admin: 04/03/22 20:51 Dose: 10 mg Heparin Sodium (Porcine) (Heparin 5,000 Unit/Ml Inj 1 Ml) 5,000 unit SUBCUT Q12H [facility] Last Admin: 04/04/22 03:56 Dose: 5,000 unit Sodium Chloride (Sodium Chloride 0.9%) 1,000 mls @ 75 mls/hr IV .[id number] [facility] Last Admin: 04/04/22 06:47 Dose: 75 mls/hr Lisinopril (Lisinopril 20 Mg Tablet) 40 mg PO DAILY [facility] Metoprolol Tartrate (Metoprolol Tartrate 25 Mg Tablet) 25 mg PO BID@0900,2100 [facility] Last Admin: 04/03/22 20:51 Dose: 25 mg Ondansetron HCl (Ondansetron 2 Mg/Ml Sdv 2 Ml) 4 mg IVP Q8H PRN PRN Reason: vomiting, or N/V if npo Vitals/I&O/Wt Last Vital Signs Temp 97.9 F 04/04/22 08:53 Pulse 68 04/04/22 08:53 Resp 23 H 04/04/22 08:53 BP 163/73 04/04/22 08:53 Pulse Ox 98 04/04/22 08:53 O2 Del Method 04/04/22 08:53 04/03/22 04/04/22 04/04/22 22:59 06:59 14:59 Intake Total 1452.5 / 1932.5 1238.75 / 3171.25 Balance 1452.5 / 1932.5 1238.75 / 3171.25 Weight last 48 hrs Weight 156 lb 9.6 oz Weight 154 lb 9.6 oz Physical Exam Narrative: GENERAL: The patient is alert and oriented times three. Not in any acute distress. HEENT: No significant pallor, icterus or lymphadenopathy.Oral cavity: There are no mucous membrane lesions. NECK: Trachea appears to be central. No masses noted. No JVD or thyromegaly appreciated. RESPIRATORY: Chest is symmetrical. No intercostals muscle retraction or any accessory muscle activation. There is no chest wall tenderness. Breath sounds are heard bilaterally. No rales or rhonchi heard. No evidence of any consolidation. BREASTS: Deferred. HEART: The heart sounds are normal. No S3 or S4. No significant murmurs. No pericardial rub ABDOMEN: No vessel pulsations or distention. No tenderness. No organomegaly appreciated. Bowel sounds are normally heard. : Deferred. RECTAL: Deferred. LYMPHATIC: No lymphadenopathy noted in the neck. EXTREMITIES: No edema or cyanosis. No clubbing. MUSCULOSKELETAL: No acute joint deformities or swelling SKIN: There are no significant rashes or ecchymosis NEUROPSYCHIATRIC: The patient is alert and oriented x3. Appears to be in a good mood. No tremors or rigidity noted. Data : 04/04/22 04:35 04/04/22 04:35 Other Labs: Laboratory Last Values WBC 8.4 10^3/uL (4.0-10.0) 04/04/22 04:35 RBC 4.41 10^6/uL (4.1-5.3) 04/04/22 04:35 Hgb 13.2 g/dL (11.5-15.3) 04/04/22 04:35 Hct 41.6 % (37.0-47.0) 04/04/22 04:35 MCV 94.3 fl (81-99) 04/04/22 04:35 MCH 29.9 pg (28.0-34.0) 04/04/22 04:35 MCHC 31.7 g/dL (30.0-36.0) 04/04/22 04:35 RDW 14.2 % (12.1-15.1) 04/04/22 04:35 Plt Count 288 10^3/cmm (130-400) 04/04/22 04:35 MPV 10.3 fL (7.4-10.4) 04/04/22 04:35 Neut % (Auto) 45.1 % 04/04/22 04:35 Lymph % (Auto) 44.0 % 04/04/22 04:35 [place] % (Auto) 7.0 % 04/04/22 04:35 Eos % (Auto) 2.6 % 04/04/22 04:35 Baso % (Auto) 0.9 % 04/04/22 04:35 Neut # (Auto) 3.81 10^3/uL (1.8-7.7) 04/04/22 04:35 Lymph # (Auto) 3.7 10^3/uL (0.8-4.8) 04/04/22 04:35 [place] # (Auto) 0.6 10^3/uL (0.2-0.9) 04/04/22 04:35 Eos # (Auto) 0.2 10^3/uL (0.0-0.8) 04/04/22 04:35 Baso # (Auto) 0.1 10^3/uL (0.0-0.1) 04/04/22 04:35 Nucleated RBC % (auto) 0 % 04/04/22 04:35 Nucleated RBCs # 0.0 /100WBC 04/04/22 04:35 D-Dimer 0.61 ug/mIFEU (0-0.59) H 04/02/22 23:48 Sodium 138 mmol/L (136-145) 04/04/22 04:35 Potassium 4.4 mmol/L (3.5-5.1) 04/04/22 04:35 Chloride 108 mmol/L (98-107) H 04/04/22 04:35 Carbon Dioxide 23 mmol/L (22-29) 04/04/22 04:35 Anion Gap 11.4 (5-19) 04/04/22 04:35 BUN 17 mg/dL (8-23) 04/04/22 04:35 Creatinine 0.7 mg/dL (0.5-0.9) 04/04/22 04:35 GFR Calculation Not Reportable 04/04/22 04:35 Glucose 103 mg/dL (65-115) 04/04/22 04:35 Calculated Osmolality 288 mOsm/kg (285-295) 04/04/22 04:35 Calcium 8.7 mg/dL (8.5-10.5) 04/04/22 04:35 Magnesium 1.7 mg/dL (1.7-2.3) 04/04/22 04:35 Magnesium Cancelled 04/04/22 04:35 Total Bilirubin 0.5 mg/dL (0.15-1.2) 04/04/22 04:35 AST 18 U/L (0-32) 04/04/22 04:35 ALT 8 U/L (0-33) 04/04/22 04:35 Alkaline Phosphatase 81 IU/L (35-105) 04/04/22 04:35 Troponin T Baseline 8 ng/L (0-10) 04/02/22 23:05 Troponin T 120 Minute 7.86 ng/L (0-10) 04/03/22 01:15 Delta Troponin T -0.14 ABS# (0-10) L 04/03/22 01:15 Troponin T Hi Sens 6Hr 8.33 ng/L (0-10) 04/03/22 04:20 Troponin T Hi Sens 6Hr Delta 0.33 ng/L (0-12) 04/03/22 04:20 Total Protein 6.5 g/dL (6.6-8.7) L 04/04/22 04:35 Albumin 3.7 g/dL (3.5-5.2) 04/04/22 04:35 Globulin 2.8 g/dL (1.3-4.6) 04/04/22 04:35 TSH 5.43 uIU/mL (0.27-4.20) H 04/02/22 23:05 A&P Assessment and plan (1) Near syncope: Most likely the patient's symptoms are related to the tachybradycardia arrhythmia. She apparently had episodes of tachycardia and bradycardia arrhythmias on the monitor. The heart rate may go into the upper 40s and low 50s and then she has episodes of PAT's with a heart rate in the 140s and 150s. Is a has not had any recurrence of the symptoms during this hospital stay, did be appropriate to continue on the current medications. She may be discharged home with an event monitor for 30 days. Based on the event monitor findings, further recommendations will be made. Status: Acute (2) Paroxysmal atrial tachycardia: Patient is currently on metoprolol 25 mg p.o. twice daily. This may be continued. Status: Acute (3) Accelerated hypertension: Patient may be given late lisinopril 40 mg p.o. now and daily. Her blood pressure needs to be closely monitored Status: Acute (4) Hypercholesteremia: May continue on the current medications. Status: Acute Plan If the patient continues to remain stable after the morning medications, she may be discharged home on an event monitor. We will be seeing the [facility] in 1 week by the nurse practitioner. I may see her in the office in a month. Attestations Medical Necessity Statement*: Possible discharge home today Coding Level of Care Code Acute Sourcing Analyst for Omid Goodrich Diagnoses Near syncope R55 Paroxysmal atrial tachycardia I47.1 Accelerated hypertension I10 Hypercholesteremia E78.00
[2022-04-04] MEDS: metoprolol tartrate 25 mg Tablet PO (08:59)
[2022-04-04] MEDS: aspirin 81 mg EC Tablet PO (09:01)
[2022-04-04] MEDS: lisinopril 20 mg Tablet 40 MG PO (09:03)
--- NOTE | 2022-04-04 09:53 | PC.NURSE ---
Dr. Eastman ordered a dose of 40mg lisinopril along with 25mg metoprolol. We will monitor patients heart rhythm for a few hours before discharging with 30 day heart monitor. Patient ambulated in the hallway with no signs of dizziness or weakness. Heart rhythm still showing some Ruperto episodes.
--- NOTE | 2022-04-04 10:15 | PC.CHAP ---
Pastoral Care Encounter/Spiritual Assessment Type of Contact [] Declined air valve repairer visit [] Patient/Family/Request visit [] Outpatient visit [] Follow-up visit [] Physician referral [] Code/Alert [x] Routine visit [] Staff referral [] Actively dying [] Patient sleeping [x] Family support [] [] Out of room [] Palliative care [] [] Receiving care in room [] Pre-surgical visit [] Trauma [] Long length of stay [x] ICU visit [] Other: Relational/Emotional Strength [] Patient feels connected with others/family/visitors/staff [] Distress [] Loneliness/isolation [] Abandonment Spirituality of Patient [] Person of Reba [] Attends Uatsdin of their Reba [] Believes in Prayer [] Reads Bible or Restorationism materials [] There are Spiritual issues to be addressed Electrician Supervisor Substation Interventions [x] Prayer [x] Active listening [x] Non-anxious presence [x] Spiritual/emotional support [] Crisis/trauma care [] Spiritual counseling [] Bereavement support [] Provided bereavement packet [] Provided Bible/devotional materials [] Provided toy/stuffed animal, coloring book to patient or family member [] Provided Communion [] Anointing/[place] [] Salvation [x] Completed spiritual assessment [] Other: Impact on Illness or Injury [] Angry [] Fearful [] Anxious [] Often cries [] Exhaustion [] Unable to work [] Unable to attend rastafarian [] Unable to walk/stand [] Unable to read [] Unable to drive [] Unable to eat/drink [] Unable to sleep [] Unable to be with family [] Patient intubated [] Other: Summary Time spent with patient
--- NOTE | 2022-04-04 12:21 | P.DS_ITS ---
Discharge Providers Date of Admission: 04/03/22 02:15 Date of Discharge: April 04, 2022 Attending Provider at Admission: Yolanda Hampton MD Attending Provider at Discharge: Jamie Alexander MD Primary Care Provider: Gary Wyatt MD Diagnoses at Discharge Discharge Diagnosis (1) Near syncope: Status: Acute (2) Paroxysmal atrial tachycardia: Status: Acute (3) Accelerated hypertension: Status: Acute (4) Hypercholesteremia: Status: Acute Reason for Visit Reason for Visit: Faintish/Heart palpitations Hospital Course Hospital Course Aida presents to the emergency department with palpitations. It was evident she was having multiple episodes of PACs and SVT. She occasionally would become bradycardic. She was placed on metoprolol 25 mg twice daily, from her baseline of 12.5 mg twice daily. Cardiology was consulted. She had had a recent work-up with echocardiogram, TSH which were unrevealing. Electrolytes and magnesium were normal. Troponin was not concerning. After adjustment of her medications, much of her ectopy was greatly improved. Cardiology believes she could follow- up as an outpatient, and have event monitor placed upon discharge. She will see cardiology in 1 week and in 4 weeks. She was instructed for any worsening, to return to the hospital. Physical Exam Narrative: General exam regular rate and rhythm with occasional premature beat Neck is supple no lymphadenopathy or thyromegaly Cardiovascular regular rate and rhythm without murmur. Occasional premature beat Lungs clear no wheezing or crackles Abdomen is soft, positive bowel sounds Extremities no cyanosis clubbing or edema Skin without rash Discharge Data Studies Completed and Pending Completed Studies During Hospitalization Category Date Time Status XR chest 1V portable [id number] Stat Exams 04/02/22 22:39 Completed Pending at discharge Category Date Time Status MCT/Event Monitor 30 Days Routine Exams 04/04/22 08:44 Ordered Radiology Impressions Chest X-Ray 04/02/22 22:39 IMPRESSION: No acute findings. Laboratory Results WBC 8.4 10^3/uL (4.0-10.0) 04/04/22 04:35 RBC 4.41 10^6/uL (4.1-5.3) 04/04/22 04:35 Hgb 13.2 g/dL (11.5-15.3) 04/04/22 04:35 Hct 41.6 % (37.0-47.0) 04/04/22 04:35 MCV 94.3 fl (81-99) 04/04/22 04:35 MCH 29.9 pg (28.0-34.0) 04/04/22 04:35 MCHC 31.7 g/dL (30.0-36.0) 04/04/22 04:35 RDW 14.2 % (12.1-15.1) 04/04/22 04:35 Plt Count 288 10^3/cmm (130-400) 04/04/22 04:35 MPV 10.3 fL (7.4-10.4) 04/04/22 04:35 Neut % (Auto) 45.1 % 04/04/22 04:35 Lymph % (Auto) 44.0 % 04/04/22 04:35 [place] % (Auto) 7.0 % 04/04/22 04:35 Eos % (Auto) 2.6 % 04/04/22 04:35 Baso % (Auto) 0.9 % 04/04/22 04:35 Neut # (Auto) 3.81 10^3/uL (1.8-7.7) 04/04/22 04:35 Lymph # (Auto) 3.7 10^3/uL (0.8-4.8) 04/04/22 04:35 [place] # (Auto) 0.6 10^3/uL (0.2-0.9) 04/04/22 04:35 Eos # (Auto) 0.2 10^3/uL (0.0-0.8) 04/04/22 04:35 Baso # (Auto) 0.1 10^3/uL (0.0-0.1) 04/04/22 04:35 Nucleated RBC % (auto) 0 % 04/04/22 04:35 Nucleated RBCs # 0.0 /100WBC 04/04/22 04:35 D-Dimer 0.61 ug/mIFEU (0-0.59) H 04/02/22 23:48 Sodium 138 mmol/L (136-145) 04/04/22 04:35 Potassium 4.4 mmol/L (3.5-5.1) 04/04/22 04:35 Chloride 108 mmol/L (98-107) H 04/04/22 04:35 Carbon Dioxide 23 mmol/L (22-29) 04/04/22 04:35 Anion Gap 11.4 (5-19) 04/04/22 04:35 BUN 17 mg/dL (8-23) 04/04/22 04:35 Creatinine 0.7 mg/dL (0.5-0.9) 04/04/22 04:35 GFR Calculation Not Reportable 04/04/22 04:35 Glucose 103 mg/dL (65-115) 04/04/22 04:35 Calculated Osmolality 288 mOsm/kg (285-295) 04/04/22 04:35 Calcium 8.7 mg/dL (8.5-10.5) 04/04/22 04:35 Magnesium 1.7 mg/dL (1.7-2.3) 04/04/22 04:35 Magnesium Cancelled 04/04/22 04:35 Total Bilirubin 0.5 mg/dL (0.15-1.2) 04/04/22 04:35 AST 18 U/L (0-32) 04/04/22 04:35 ALT 8 U/L (0-33) 04/04/22 04:35 Alkaline Phosphatase 81 IU/L (35-105) 04/04/22 04:35 Troponin T Baseline 8 ng/L (0-10) 04/02/22 23:05 Troponin T 120 Minute 7.86 ng/L (0-10) 04/03/22 01:15 Delta Troponin T -0.14 ABS# (0-10) L 04/03/22 01:15 Troponin T Hi Sens 6Hr 8.33 ng/L (0-10) 04/03/22 04:20 Troponin T Hi Sens 6Hr Delta 0.33 ng/L (0-12) 04/03/22 04:20 Total Protein 6.5 g/dL (6.6-8.7) L 04/04/22 04:35 Albumin 3.7 g/dL (3.5-5.2) 04/04/22 04:35 Globulin 2.8 g/dL (1.3-4.6) 04/04/22 04:35 TSH 5.43 uIU/mL (0.27-4.20) H 04/02/22 23:05 Vitals Last Vital Signs Temp 97.9 F 04/04/22 08:53 Pulse 68 08/03/22 08:53 Resp 23 H 04/04/22 08:53 BP 163/73 04/04/22 08:53 Pulse Ox 98 04/04/22 08:53 O2 Del Method 04/04/22 08:53 Discharge Plan Discharge Patient Disposition: Home Condition: Stable Prescriptions: New metoprolol tartrate 25 mg Tablet 25 mg PO BID@0900,2100 Qty: 60 0RF lisinopril 20 mg Tablet 40 mg PO DAILY Qty: 30 0RF Continued Xanax 0.25 mg tablet 0.25 mg PO BID PRN (Reason: anxiety) Qty: 40 1RF atorvastatin 10 mg tablet 10 mg PO BEDTIME Aspir-81 81 mg Tablet,Delayed Release (Dr/Ec) 81 mg PO DAILY@08 Discontinued lisinopril 20 mg tablet 20 mg PO BEDTIME metoprolol tartrate 25 mg tablet 12.5 mg PO BID Discharge Orders: Discharge Order (Routine); Ordered 04/04/22 Ordered By: Jamie Alexander Other Ambulatory Orders: MCT/Event Monitor 30 Days (Routine) Timeframe: 1 Day Facility: [facility] - Location: Radiology Ordered By: Jamie Alexander Referrals: Gary Wyatt MD [Primary Care Provider] - 4-7 days Geraldine Eastman MD [Physician] - 1 week (To follow-up with cardiology, nurse practitioner [address] Eastman 4 weeks) Discharge Diet: Cardiac Discharge Activity: Increase activity as tolerated Patient Instructions: Opioid Safety Activity Restrictions/Additional Instructions: Return for any concerns. Take all medicine as prescribed. Follow-up with cardiology as noted Event monitor on discharge. Discharge Attestations Time Spent in Discharge Care*: greater than 30 min Quality Metrics Clinical Quality Measures [ No reported AMI, CVA or VTE this stay] Coding Level of Care Code Acute Chg FW DC note Diagnoses Near syncope R55 Paroxysmal atrial tachycardia I47.1 Accelerated hypertension I10 Hypercholesteremia E78.00
--- NOTE | 2022-04-04 14:11 | PC.NURSE ---
Patient discharged accompanied by spouse. Discharge teaching given as well as written instructions. Pharmacy delivered Rx to room. Patient was led out to MOB and directed to [facility] for heart [facility]. Patient was able to ambulate and gathered all belongings. Catheter removed and intact.
--- NOTE | 2022-04-04 14:17 | PC.NURSE ---
Primary nurse Ricky Martins RN, secondary nurse Santo Good RN.
== END 2022-04-04 14:05 | disposition home or self-care (01) ==
LOC: ER 04-03 03:35 → ER IP 04-03 05:36 → ICU 04-03 10:46
PROVIDERS: Admitting Provider Internal Medicine; Emergency Provider Emergency Medicine; PCP Family Medicine; Visit Provider Internal Medicine
DX: I47.1 Supraventricular tachycardia (principal); R55 Syncope and collapse; I10 Essential (primary) hypertension; E78.00 Pure hypercholesterolemia, unspecified; Z79.82 Long term (current) use of aspirin; R00.1 Bradycardia, unspecified; F41.9 Anxiety disorder, unspecified; Z82.49 Family history of ischemic heart disease and other diseases of the circulatory system
CPT/HCPCS: 36415; 71045; 80053; 83735; 84443; 84484; 85025; 85378; 93005; 93228; 94760; 96372; 99285; G0378; J1644; J2250; J7030; J7040

== ENCOUNTER → 2022-04-10 12:59 | Outpatient (BNVA) | payer MEDICARE, SELFPAY | PROVIDERS: PCP Family Medicine; Visit Provider Nurse Practitioner Family | DX: I47.1 Supraventricular tachycardia (principal); I10 Essential (primary) hypertension | CPT/HCPCS: 99213; 99214 ==

== ENCOUNTER → 2022-05-01 11:30 | Outpatient (BNVA) | payer MEDICARE, SELFPAY | PROVIDERS: PCP Family Medicine; Visit Provider Internal Medicine Cardiovascular Disease | DX: I47.1 Supraventricular tachycardia (principal); R55 Syncope and collapse; I10 Essential (primary) hypertension; E78.00 Pure hypercholesterolemia, unspecified | CPT/HCPCS: 99214 ==

== ENCOUNTER → 2022-07-11 10:29 | Outpatient (BNVA) | payer MEDICARE, SELFPAY | PROVIDERS: PCP Family Medicine; Visit Provider Emergency Medicine | DX: S69.92XA Unspecified injury of left wrist, hand and finger(s), initial encounter (principal); X58.XXXA Exposure to other specified factors, initial encounter | CPT/HCPCS: 73130 ==

== ENCOUNTER → 2022-11-26 11:42 | Outpatient (BNVA) | payer MEDICARE, SELFPAY | PROVIDERS: PCP Family Medicine; Visit Provider Internal Medicine Cardiovascular Disease | DX: I49.9 Cardiac arrhythmia, unspecified (principal); I10 Essential (primary) hypertension; R55 Syncope and collapse; E78.00 Pure hypercholesterolemia, unspecified; Z79.82 Long term (current) use of aspirin | CPT/HCPCS: 99214 ==

== ENCOUNTER → 2022-12-10 11:29 | Outpatient (BNVA) | payer MEDICARE, SELFPAY | PROVIDERS: PCP Family Medicine; Visit Provider Family Medicine | DX: I10 Essential (primary) hypertension (principal); E78.00 Pure hypercholesterolemia, unspecified; F41.9 Anxiety disorder, unspecified | CPT/HCPCS: 80053; 80061; 85025 ==

== ENCOUNTER 2023-02-13 22:06 | Emergency (ER) | payer MEDICARE, SELFPAY ==
[2023-02-13 22:07] VITALS: BP 177/73; PULSE 63; RESP 17; TEMP 36.9; O2SAT 98; BMI 27.4
--- NOTE | 2023-02-13 22:25 | ED_ITS ---
HPI - Back Pain/Injury General: Chief Complaint: Back Pain/Injury Stated Complaint: Back Pain Time Seen by Provider: 02/13/23 22:17 History of Present Illness: Patient presents to the ER with complaints of low back pain. Patient thinks she may have strained her back, carrying laundry up the stairs. Patient has been having a fever approximately 100.4 at home today she think she may have UTI on top of this. MD elicited complaint: back pain Pertinent past history: prior back pain Onset (ago): day(s) (Today) Timing: constant Severity: mild Quality: aching Location: right lower back and left lower back Radiation: none Exacerbating factors: movement Relieving factors: medication Work related injury: No Review of Systems General: Reports: 10 or more systems reviewed and unremarkable except in HPI and below PFSH ED PFSH: Medical History Hypercholesteremia Hypertension Lipoma of anterior chest wall Ureterolithiasis Surgical History H/O: hysterectomy History of carpal tunnel surgery Family History Other CAD (coronary artery disease) Social History Smoking and tobacco status: never smoked Alcohol intake: never Physical Exam Const: COMMON NORMALS: no acute distress, average body habitus, patient oriented x3, no limitations, healthy appearing, alert and well nourished HENMT: COMMON NORMALS: normocephalic, atraumatic, hearing grossly normal bilaterally, Normal external nose present and moist oral mucous membranes HEAD & SCALP: normocephalic and atraumatic NOSE: Normal external nose present Neck/C-Spine: COMMON NORMALS: full ROM, no lymphadenopathy, supple, no meningeal signs, no JVD, Thyroid normal and No carotid bruits THYROID: Thyroid normal Chest: COMMONS NORMALS: normal inspection of the chest and normal palpation of entire chest wall Resp: COMMON NORMALS: normal respiratory effort, No retractions, No use of accessory muscles and clear to auscultation bilaterally AUSCULTATION: clear to auscultation bilaterally Cardio: COMMON NORMALS: no JVD, regular rate, regular rhythm, S1 normal heart sound present, S2 normal heart sound present, No gallops present (Cardio), No clicks present (Cardio), No murmurs present (Cardio) and No rub (Cardio) RATE: regular rate RHYTHM: regular rhythm HEART SOUNDS: S1 normal heart sound present and S2 normal heart sound present GI: COMMON NORMALS: Normal to inspection, nondistended, normoactive bowel sounds present, Soft to palpation and No hepatosplenomegaly present PALPATION: Yes Soft to palpation and Yes No hepatosplenomegaly present Back/Pelvis: LUMBAR SPINE/LOWER BACK: Yes paraspinal muscle tenderness Neuro: COMMON NORMALS: patient oriented x3 SENSORIUM/ORIENTATION: Yes alert MENINGEAL SIGNS: Yes no meningeal signs Course Vital Signs: Vital signs: Vital Signs Temperature 98.4 F 02/13/23 22:07 Pulse Rate 52 L 02/13/23 23:30 Respiratory Rate 15 02/13/23 23:30 Blood Pressure 158/76 02/13/23 23:30 Pulse Oximetry 98 02/13/23 23:30 Oxygen Delivery Me thod Room Air 02/13/23 23:30 MDM - Back Pain/Injury Medical Decision Making Patient presents to the ER with low back pain and she think she may have a UTI. Lab work was obtained which was benign except for elevated inflammatory markers, urinalysis was negative, patient was given a shot of Toradol IM which did relieve the majority of her back pain. Patient will be discharged home on meloxicam 7.5 mg p.o. twice daily structured to follow-up with her family doc within the next 1 week. Differential Diagnosis Likely strain of lumbar region; Unlikely lumbar radiculopathy, sciatica, renal colic, pyelonephritis, thoracic back pain, AAA or discitis Medical Records I reviewed the patient's medical records. Labs I reviewed the patient's lab results. 02/13/23 23:15 02/13/23 23:15 Laboratory Results WBC 11.8 10^3/uL (4.0-10.0) H 02/13/23 23:15 RBC 4.24 10^6/uL (4.1-5.3) 02/13/23 23:15 Hgb 12.5 g/dL (11.5-15.3) 02/13/23 23:15 Hct 38.2 % (37.0-47.0) 02/13/23 23:15 MCV 90.1 fl (81-99) 02/13/23 23:15 MCH 29.5 pg (28.0-34.0) 02/13/23 23:15 MCHC 32.7 g/dL (30.0-36.0) 02/13/23 23:15 RDW 14.1 % (12.1-15.1) 02/13/23 23:15 Plt Count 290 10^3/cmm (130-400) 02/13/23 23:15 MPV 9.9 fL (7.4-10.4) 02/13/23 23:15 Neut % (Auto) 64.6 % 02/13/23 23:15 Lymph % (Auto) 25.4 % 02/13/23 23:15 [place] % (Auto) 7.9 % 02/13/23 23:15 Eos % (Auto) 1.0 % 02/13/23 23:15 Baso % (Auto) 0.7 % 02/13/23 23:15 Neut # (Auto) 7.59 10^3/uL (1.8-7.7) 02/13/23 23:15 Lymph # (Auto) 3.0 10^3/uL (0.8-4.8) 02/13/23 23:15 [place] # (Auto) 0.9 10^3/uL (0.2-0.9) 02/13/23 23:15 Eos # (Auto) 0.1 10^3/uL (0.0-0.8) 02/13/23 23:15 Baso # (Auto) 0.1 10^3/uL (0.0-0.1) 02/13/23 23:15 Nucleated RBC % (auto) 0 % 02/13/23 23:15 Nucleated RBCs # 0.0 /100WBC 02/13/23 23:15 ESR 44 mm/hr (0-15) H 02/13/23 23:15 Sodium 138 mmol/L (136-145) 02/13/23 23:15 Potassium 3.5 mmol/L (3.5-5.1) 02/13/23 23:15 Chloride 104 mmol/L (98-107) 02/13/23 23:15 Carbon Dioxide 25 mmol/L (22-29) 02/13/23 23:15 Anion Gap 12.5 (5-19) 02/13/23 23:15 BUN 14 mg/dL (8-23) 02/13/23 23:15 Creatinine 0.8 mg/dL (0.5-0.9) 02/13/23 23:15 GFR Calculation Not Reportable 02/13/23 23:15 Glucose 114 mg/dL (65-115) 02/13/23 23:15 Calculated Osmolality 287 mOsm/kg (285-295) 02/13/23 23:15 Calcium 9.3 mg/dL (8.5-10.5) 02/13/23 23:15 Total Bilirubin 0.4 mg/dL (0.15-1.2) 02/13/23 23:15 AST 18 U/L (0-32) 02/13/23 23:15 ALT 9 U/L (0-33) 02/13/23 23:15 Alkaline Phosphatase 93 U/L (35-105) 02/13/23 23:15 C-Reactive Protein 23.6 mg/L (0.0-4.9) H 02/13/23 23:15 Total Protein 7.0 g/dL (6.6-8.7) 02/13/23 23:15 Albumin 3.7 g/dL (3.5-5.2) 02/13/23 23:15 Globulin 3.3 g/dL (1.3-4.6) 02/13/23 23:15 Urine Color Yellow (Yellow) 02/13/23 22:55 Urine Appearance Clear (CLEAR) 02/13/23 22:55 Urine pH 5 (5-7) 02/13/23 22:55 Ur Specific [place] 1.015 (1.005-1.030) 02/13/23 22:55 Urine Protein Neg (Negative) 02/13/23 22:55 Urine Glucose (UA) Norm (Normal) 02/13/23 22:55 Urine Ketones Negative (Negative) 02/13/23 22:55 Urine Blood Neg (Negative) 02/13/23 22:55 Urine Nitrate Negative (Negative) 02/13/23 22:55 Urine Bilirubin Neg (Negative) 02/13/23 22:55 Urine Urobilinogen Norm mg/dL (Negative) 02/13/23 22:55 Ur Leukocyte Esterase Negative (Negative) 02/13/23 22:55 Discharge Plan Discharge Patient Disposition: Home Clinical Impression: Strain of lumbar region Condition: Stable Prescriptions: New meloxicam 7.5 mg tablet 7.5 mg PO BID PRN (Reason: pain ) Qty: 14 0RF No Action metoprolol tartrate 25 mg tablet 25 mg PO BID 30 Days Qty: 60 5RF valsartan 320 mg tablet 320 mg PO DAILY Qty: 90 3RF Xanax 0.25 mg tablet 0.25 mg PO BID PRN (Reason: anxiety) Qty: 60 3RF atorvastatin 10 mg tablet 10 mg PO BEDTIME Qty: 90 3RF carvedilol 12.5 mg tablet 12.5 mg PO BID Qty: 180 3RF Rx Instructions: must administer with a meal/food aspirin 81 mg Tablet,Delayed Release (Dr/Ec) 81 mg PO DAILY@08 Discharge Orders: Discharge ED (Routine); Ordered 02/13/23 Ordered By: Rene Cononrs Referrals: Gary Wyatt MD [Primary Care Provider] - 1 week Patient Instructions: Acute Low Back Pain (ED) Activity Restrictions/Additional Instructions: Take your medication as prescribed. Please follow-up with your family doctor as needed within the next 7 days. Coding Level of Care Code ED Senior Underwriter for Omid Goodrich
[2023-02-13 23:05] LABS: Add Urine Microscopic? NO
[2023-02-13 23:06] VITALS: BP 170/76; PULSE 62; RESP 20; O2SAT 97
[2023-02-13 23:10] LABS: Blood Urine Neg (Negative); Glucose Urine UA Norm (Normal); Ketones Urine Negative (Negative); Nitrate Urine Negative (Negative); Protein Urine Neg (Negative); Specific Gravity, Urine 1.015 (1.005-1.030); Urine Appearance Clear (CLEAR); Urine Color Yellow (Yellow); pH Urine 5 (5-7)
[2023-02-13 23:11] LABS: Bilirubin Urine Neg (Negative); Charge for UA Resulting for Rev; Leukocyte Esterase Urine Negative (Negative); Urobilinogen Urine Norm (Negative)
[2023-02-13 23:24] LABS: Basophils # 0.1 10^3/uL (0.0-0.1); Basophils % 0.7 %; Eosinophils # 0.1 10^3/uL (0.0-0.8); Hematocrit 38.2 % (37.0-47.0); Hemoglobin 12.5 g/dL (11.5-15.3); Lymphocytes % 25.4 %; Mean Corpuscular HGB Conc 32.7 g/dL (30.0-36.0); Mean Corpuscular Hemoglobin 29.5 pg (28.0-34.0); Mean Corpuscular Volume 90.1 fl (81-99); Mean Platelet Volume 9.9 fL (7.4-10.4); Monocytes # 0.9 10^3/uL (0.2-0.9); Monocytes % 7.9 %; Neutrophils # 7.59 10^3/uL (1.8-7.7); Neutrophils % 64.6 %; Nucleated Red Blood Cells % 0 %; Platelet Count 290 10^3/cmm (130-400); Red Blood Count 4.24 10^6/uL (4.1-5.3); Red Cell Distribution Width 14.1 % (12.1-15.1); White Blood Count 11.8 10^3/uL (4.0-10.0)
[2023-02-13] MEDS: ketorolac 30 mg/mL INJ IM (23:25)
[2023-02-13 23:27] LABS: Erythrocyte Sedimentation Rate 44 mm/hr (0-15)
[2023-02-13 23:30] VITALS: BP 158/76; PULSE 52; RESP 15; O2SAT 98
[2023-02-13 23:45] LABS: Alanine Aminotransferase 9 U/L (0-33); Albumin Level 3.7 g/dL (3.5-5.2); Alkaline Phosphatase 93 U/L (35-105); Anion Gap 12.5 (5-19); Aspartate Amino Transferase 18 U/L (0-32); Blood Urea Nitrogen 14 mg/dL (8-23); C Reactive Protein 23.6 mg/L (0.0-4.9); Calcium 9.3 mg/dL (8.5-10.5); Carbon Dioxide 25 mmol/L (22-29); Chloride 104 mmol/L (98-107); Creatinine Clr Calc Pharmacy 57.5012; Globulin 3.3 g/dL (1.3-4.6); Glucose 114 mg/dL (65-115); Osmolality Calculated 287 mOsm/kg (285-295); Potassium 3.5 mmol/L (3.5-5.1); Sodium 138 mmol/L (136-145); Total Bilirubin 0.4 mg/dL (0.15-1.2)
[2023-02-14] VITALS: BP 168/78; PULSE 59; RESP 14; O2SAT 97
[2023-02-14 00:11] VITALS: BP 154/65; PULSE 52; RESP 19; O2SAT 97
== END 2023-02-14 00:15 | disposition home or self-care (01) ==
PROVIDERS: Nurse Practitioner Family; Emergency Provider Emergency Medicine; PCP Family Medicine
DX: S39.012A Strain of muscle, fascia and tendon of lower back, initial encounter (principal); X50.9XXA Other and unspecified overexertion or strenuous movements or postures, initial encounter; Y93.E2 Activity, laundry; Y92.009 Unspecified place in unspecified non-institutional (private) residence as the place of occurrence of the external cause
CPT/HCPCS: 36415; 80053; 81003; 85025; 85651; 86140; 96372; 99284; J1885

== ENCOUNTER 2023-04-03 11:14 | Emergency (ER) | payer MEDICARE, SELFPAY ==
[2023-04-03] VITALS (8 sets, daily range): BP systolic 139–205; BP diastolic 79–120; PULSE 54–101; RESP 12–21; O2SAT 94–100
--- NOTE | 2023-04-03 11:55 | ED_ITS ---
HPI - Arrhythmia/Palpitations General: Chief Complaint: Arrhythmia/Palpitations Stated Complaint: afib/weakness Time Seen by Provider: 04/03/23 11:42 History of Present Illness: 78-year-old female presents to the emergency department chief complaint of having intermittent episodes of tachycardia which she believes may be some paroxysmal atrial fibrillation patient reports has been taking medication as prescribed currently on carvedilol as well as metoprolol. She does not endorse any recent changes to these current medications. She reports this has been progressive getting worse for last couple of days she does endorse having a moderate productive cough that she has been seen in outpatient clinic patient does report having some greenish sputum production she reports no recent imaging was obtained. She presents to the ER for further assessment and management. Associated symptoms: Deny anxiety, nausea or vomiting Review of Systems General: Reports: 10 or more systems reviewed and unremarkable except in HPI and below Const: Denies: fever(s), chills, fatigue or malaise Eyes: Denies: change in vision or blurry vision Card: Reports: palpitations; Denies: chest pain Resp: Reports: dyspnea and productive cough GI: Denies: abdominal pain, nausea or vomiting : Denies: flank pain Musc: Denies: extremity pain or extremity swelling Skin/Breast: Denies: rash or pruritus Neuro: Denies: headache(s) Psych: Denies: anxiety or depression Kana/Lymph: Denies: easy bleeding All/Imm: Denies: urticaria, throat swelling or facial swelling PFS ED PFSH: Medical History Hypercholesteremia Hypertension Lipoma of anterior chest wall Ureterolithiasis Surgical History H/O: hysterectomy History of carpal tunnel surgery Family History Other CAD (coronary artery disease) Social History Smoking and tobacco status: never smoked Alcohol intake: never Physical Exam Const: COMMON NORMALS: no acute distress, patient oriented x3 and healthy appearing HENMT: COMMON NORMALS: normocephalic and atraumatic HEAD & SCALP: normocephalic and atraumatic Eye: COMMON NORMALS: Equal, round and reactive pupils present and EOMs intact bilaterally PUPIL: Yes Equal, round and reactive pupils present Neck/C-Spine: COMMON NORMALS: full ROM, supple and no JVD Lymph: LYMPHATIC: no lymphadenopathy noted Chest: COMMONS NORMALS: normal inspection of the chest and normal palpation of entire chest wall Resp: COMMON NORMALS: normal respiratory effort, No retractions and clear to auscultation bilaterally EFFORT & INSPECTION: Yes able to speak in complete sentences and Yes symmetric chest movement AUSCULTATION: clear to auscultation bilaterally OTHER: Diminished breath sounds appreciated bilaterally no obvious wheezing crackles rales or rhonchi noted. Cardio: COMMON NORMALS: no JVD, regular rate and regular rhythm RATE: regul ar rate RHYTHM: regular rhythm OTHER: Patient to monitor appears to be going in and nonsustained SVT up to 4-5 beats with a sinus pause followed by going into normal sinus rhythm no atrial fibrillation appreciated GI: COMMON NORMALS: Normal to inspection, nondistended, normoactive bowel sounds present, Soft to palpation and non-tender INSPECTION: Yes normal to inspection PALPATION: Yes Soft to palpation : COMMON NORMALS: Yes no CVA tenderness BLADDER/KIDNEY EXAM: Yes no CVA tenderness Back/Pelvis: COMMON NORMALS: no CVA tenderness Extremity: COMMON NORMALS: normal to inspection and full ROM Neuro: COMMON NORMALS: patient oriented x3, CN's II-XII intact bilaterally, moves all extremities and no focal motor deficits Psych: COMMON NORMALS: mental status grossly normal, Normal thought process present, cooperative and normal affect THOUGHT PROCESS: Normal thought process present Skin: COMMON NORMALS: no rashes or lesions noted GENERAL SKIN EXAM: no rashes or lesions noted Course Vital Signs: Vital signs: Vital Signs Pulse Rate 54 L 04/03/23 18:21 Respiratory Rate 20 H 04/03/23 15:00 Blood Pressure 145/79 04/03/23 18:21 Pulse Oximetry 99 04/03/23 18:21 Oxygen Delivery Me thod Room Air 04/03/23 15:00 MDM - Arrhythmia/Palpitations Medical Decision Making Due to patient's symptom condition IV established basic lab work and imaging will be obtained further investigation about the patient's respiratory issues and concerns we will continue to follow patient on exam is extremely hypertensive we will continue to follow very carefully to see if she needs any additional antihypertensives. Patient was given several doses of progressive antihypertensives at her initial blood pressure was found to be at 214/120. Advised patient she is currently on a subtherapeutic regimen of her high blood pressure medications the patient's cardiac troponin as well as B?SOCIAL MEDIA SPECIALIST came back negative patient was given progressive doses of both hydralazine and metoprolol throughout her time emergency department as well as Lasix. Patient does not endorse to have any active chest pain throughout her time in the ER which she is having no EKG changes. Patient was witnessed to have several episodes of nonsustained SVT with no atrial fibrillation. We will continue to follow. Patient was requiring several progressive medications for her high blood pressure 2 troponins came back negative as well as a B?SOCIAL MEDIA SPECIALIST no obvious sign suggestive of heart failure appreciated after the second dose of metoprolol patient was not observed having any intermittent SVT episodes upon reevaluation the patient with daughter present the daughter demanded that we have cardiology come down to evaluate and treat her mother as she has been on several medication regimens in the past requiring admission advised the daughter I would contact the top lift scourer per their wishes however based upon our lab work and imaging obtained today I reassured them that the patient is in no heart failure and or any obvious ischemic changes despite these findings of which she is on a subtherapeutic dosage of her blood pressure and rate medications. The patient's daughter continue to argue with me per the patient's family and patient's request will be contacting Dr. Ziegler. Discussed with Dr. Ziegler which will b e evaluate the patient after he is done doing his clinical rounds and which will be in a couple of hours the patient's family were updated and are agreeable to stay at this time I still anticipate the patient being discharged home as her current blood pressure is 171/90 with a heart rate of 65 in which she appears in no obvious acute distress. Cardiology did evaluate the patient recommended placing the patient a 14-day Holter monitor or cardiac event monitor to discontinue the patient's metoprolol and start her on carvedilol 25 mg to be taken twice daily until seen by Dr. Eastman in the office he recommended further follow-up with Dr. Eastman within the next 10 days. Patient upon reassessment had improved blood pressure in which she remains asymptomatic at this time. All questions were fully answered prior to subsequent discharge. Lab Data 04/03/23 12:17 04/03/23 12:17 Radiology Impressions Chest X-Ray 04/03/23 12:03 IMPRESSION: No acute findings. Laboratory Results WBC 9.1 10^3/uL (4.0-10.0) 04/03/23 12:17 RBC 5.00 10^6/uL (4.1-5.3) 04/03/23 12:17 Hgb 14.9 g/dL (11.5-15.3) 04/03/23 12:17 Hct 45.4 % (37.0-47.0) 04/03/23 12:17 MCV 90.8 fl (81-99) 04/03/23 12:17 MCH 29.8 pg (28.0-34.0) 04/03/23 12:17 MCHC 32.8 g/dL (30.0-36.0) 04/03/23 12:17 RDW 13.8 % (12.1-15.1) 04/03/23 12:17 Plt Count 359 10^3/cmm (130-400) 04/03/23 12:17 MPV 9.8 fL (7.4-10.4) 04/03/23 12:17 Neut % (Auto) 59.4 % 04/03/23 12:17 Lymph % (Auto) 31.4 % 04/03/23 12:17 [place] % (Auto) 5.5 % 04/03/23 12:17 Eos % (Auto) 2.5 % 04/03/23 12:17 Baso % (Auto) 0.8 % 04/03/23 12:17 Neut # (Auto) 5.38 10^3/uL (1.8-7.7) 04/03/23 12:17 Lymph # (Auto) 2.9 10^3/uL (0.8-4.8) 04/03/23 12:17 [place] # (Auto) 0.5 10^3/uL (0.2-0.9) 04/03/23 12:17 Eos # (Auto) 0.2 10^3/uL (0.0-0.8) 04/03/23 12:17 Baso # (Auto) 0.1 10^3/uL (0.0-0.1) 04/03/23 12:17 Nucleated RBC % (auto) 0 % 04/03/23 12:17 Nucleated RBCs # 0.0 /100WBC 04/03/23 12:17 Sodium 141 mmol/L (136-145) 04/03/23 12:17 Potassium 4.6 mmol/L (3.5-5.1) 04/03/23 12:17 Chloride 104 mmol/L (98-107) 04/03/23 12:17 Carbon Dioxide 22 mmol/L (22-29) 04/03/23 12:17 Anion Gap 19.6 (5-19) H 04/03/23 12:17 BUN 21 mg/dL (8-23) 04/03/23 12:17 Creatinine 0.9 mg/dL (0.5-0.9) 04/03/23 12:17 GFR Calculation Not Reportable 04/03/23 12:17 Glucose 137 mg/dL (65-115) H 04/03/23 12:17 Calculated Osmolality 297 mOsm/kg (285-295) H 04/03/23 12:17 Calcium 10.0 mg/dL (8.5-10.5) 04/03/23 12:17 Total Bilirubin 0.5 mg/dL (0.15-1.2) 04/03/23 12:17 AST 24 U/L (0-32) 04/03/23 12:17 ALT 12 U/L (0-33) 04/03/23 12:17 Alkaline Phosphatase 105 U/L (35-105) 04/03/23 12:17 Troponin T Baseline 6 ng/L (0-10) 04/03/23 12:17 Troponin T 120 Minute 7.01 ng/L (0-10) 04/03/23 14:37 Delta Troponin T 1.01 ABS# (0-10) 04/03/23 14:37 C-Reactive Protein 3.0 mg/L (0.0-4.9) 04/03/23 12:17 NT-Pro-B Natriuret Pep 393 pg/mL (0-450) 04/03/23 12:17 Total Protein 7.5 g/dL (6.6-8.7) 04/03/23 12:17 Albumin 4.3 g/dL (3.5-5.2) 04/03/23 12:17 Globulin 3.2 g/dL (1.3-4.6) 04/03/23 12:17 Urine Color Yellow (Yellow) 04/03/23 12:30 Urine Appearance Clear (CLEAR) 04/03/23 12:30 Urine pH 5 (5-7) 04/03/23 12:30 Ur Specific [place] 1.010 (1.005-1.030) 04/03/23 12:30 Urine Protein Neg (Negative) 04/03/23 12:30 Urine Glucose (UA) Norm (Normal) 04/03/23 12:30 Urine Ketones Negative (Negative) 04/03/23 12:30 Urine Blood Trace (Negative) H 04/03/23 12:30 Urine Nitrate Negative (Negative) 04/03/23 12:30 Urine Bilirubin Neg (Negative) 04/03/23 12:30 Urine Urobilinogen Norm mg/dL (Negative) 04/03/23 12:30 Ur Leukocyte Esterase Negative (Negative) 04/03/23 12:30 Urine RBC 0-4 /hpf (0-2) H 04/03/23 12:30 Urine WBC 0-4 /hpf (0-5) H 04/03/23 12:30 Ur Squamous Epith Cells 0-4 /hpf (0-5) H 04/03/23 12:30 Amorphous Sediment Not Reportable 04/03/23 12:30 Urine Bacteria None /hpf (NONE) 04/03/23 12:30 EKG Data Rene please further normal sinus rhythm with frequent S VT rate of [address] segment elevations or depressions sinus rhythm with paroxysmal SVT current rate of 89: Other EKG comments: Chest X-Ray 04/03/23 12:03 IMPRESSION: No acute findings. Discharge Plan Discharge Patient Disposition: Home Clinical Impression: Essential hypertension, Nonsustained paroxysmal supraventricular tachycardia Condition: Stable Prescriptions: New Coreg 25 mg tablet 25 mg PO BID Qty: 30 0RF Rx Instructions: must administer with a meal/food No Action metoprolol tartrate 25 mg tablet 25 mg PO BID 30 Days Qty: 60 5RF valsartan 320 mg tablet 320 mg PO DAILY Qty: 90 3RF Xanax 0.25 mg tablet 0.25 mg PO BID PRN (Reason: anxiety) Qty: 60 3RF amoxicillin-pot clavulanate 875-125 mg tablet 1 tab PO BID 7 Days Qty: 14 0RF Rx Instructions: for 7 days (rx filled 03/27/23) atorvastatin 10 mg tablet 10 mg PO BEDTIME Qty: 90 3RF carvedilol 12.5 mg tablet 12.5 mg PO BID Qty: 180 3RF Rx Instructions: must administer with a meal/food aspirin 81 mg Tablet,Delayed Release (Dr/Ec) 81 mg PO .TWO TIMES A WEEK meloxicam 7.5 mg tablet 7.5 mg PO BID PRN (Reason: pain ) Qty: 14 0RF Discharge Orders: Discharge ED (Routine); Ordered 04/03/23 Ordered By: Poli Dunn Referrals: Gary Wyatt MD [Primary Care Provider] - Geraldine Eastman MD [Physician] - 1 week Discharge Diet: Cardiac Discharge Activity: Increase activity as tolerated Activity Restrictions/Additional Instructions: Please further follow-up with Dr. Eastman your top lift scourer in 1 week you will be contacted regards to be scheduled for a quality assurance monitor chassis 14-day monitor you have been evaluated by cardiology Dr. Ziegler while in the emergency department which you have been started on a increased dose of your carvedilol to be taken 25 mg twice daily you are instructed to discontinue your metoprolol at this time please return in the interim if any of your symptoms persist or worse. At this time based upon your cardiac test lab work and imaging everything looks reassuring that you are not having a heart attack or any obvious signs suggestive of heart failure due to your rhythm disturbances. Coding Level of Care Code ED [employer] for Omid Goodrich
--- NOTE | 2023-04-03 12:00 | ECG_ITS ---
[facility] Test Date: 2023-04-03 Pat Name: Aida Dhillon Department: Room: Gender: Female Health It Specialist: : 1945 Requested By: Poli Dunn Order Number: [id number] Lul MD: Geraldine Eastman M.D. Measurements Intervals [place] Rate: 84 P: 58 UT: 137 QRS: 69 QRSD: 82 T: 45 QT: 353 QTc: 419 Interpretive Statements SINUS RHYTHM WITH FREQUENT SUPRAVENTRICULAR PREMATURE COMPLEXES MODERATE ST DEPRESSION [0.05+ mV ST DEPRESSION] Compared to ECG 04/03/2022 04:19:48 ST (T wave) deviation now present Sinus bradycardia no longer present Electronically Signed On 04-03-2023 23:23:41 CDT by Geraldine Eastman M.D. [email or web address].[employer]/store/NU/[id number] f
--- NOTE | 2023-04-03 12:03 | XRR_ITS ---
PROCEDURE INFORMATION: Exam: XR Chest Exam date and time: 04/03/2023 12:04 PM Age: 78 years old Clinical indication: Cough; Additional info: Cough and congestion TECHNIQUE: Imaging protocol: Radiologic exam of the chest. Views: 2 views. Total images: 504 COMPARISON: CR XR chest 1V portable [id number] 04/02/2022 11:53 PM FINDINGS: Lungs: Unremarkable. No consolidation. Pleural spaces: Unremarkable. No pleural effusion. No pneumothorax. Heart/Mediastinum: Unremarkable. No cardiomegaly. Bones/joints: Mild scattered degenerative changes of the spine. XR/XR chest 2V* [id number] IMPRESSION: No acute findings.
[2023-04-03] MEDS: sodium chloride 0.9% 500 ML IV (12:15)
[2023-04-03 12:28] LABS: Basophils # 0.1 10^3/uL (0.0-0.1); Basophils % 0.8 %; Eosinophils # 0.2 10^3/uL (0.0-0.8); Eosinophils % 2.5 %; Hematocrit 45.4 % (37.0-47.0); Hemoglobin 14.9 g/dL (11.5-15.3); Lymphocytes # 2.9 10^3/uL (0.8-4.8); Lymphocytes % 31.4 %; Mean Corpuscular HGB Conc 32.8 g/dL (30.0-36.0); Mean Corpuscular Hemoglobin 29.8 pg (28.0-34.0); Mean Corpuscular Volume 90.8 fl (81-99); Mean Platelet Volume 9.8 fL (7.4-10.4); Monocytes # 0.5 10^3/uL (0.2-0.9); Monocytes % 5.5 %; Neutrophils # 5.38 10^3/uL (1.8-7.7); Neutrophils % 59.4 %; Nucleated Red Blood Cells % 0 %; Platelet Count 359 10^3/cmm (130-400); Red Cell Distribution Width 13.8 % (12.1-15.1); White Blood Count 9.1 10^3/uL (4.0-10.0)
[2023-04-03 12:49] LABS: Troponin(5th) Baseline 6 ng/L (0-10)
[2023-04-03 12:52] LABS: Alanine Aminotransferase 12 U/L (0-33); Albumin Level 4.3 g/dL (3.5-5.2); Alkaline Phosphatase 105 U/L (35-105); Anion Gap 19.6 (5-19); Aspartate Amino Transferase 24 U/L (0-32); Blood Urea Nitrogen 21 mg/dL (8-23); Carbon Dioxide 22 mmol/L (22-29); Chloride 104 mmol/L (98-107); Creatinine Clr Calc Pharmacy 51.1122; Globulin 3.2 g/dL (1.3-4.6); Glucose 137 mg/dL (65-115); NT Pro B Type Natriuretic Pept 393 pg/mL (0-450); Osmolality Calculated 297 mOsm/kg (285-295); Potassium 4.6 mmol/L (3.5-5.1); Sodium 141 mmol/L (136-145); Total Bilirubin 0.5 mg/dL (0.15-1.2); Total Protein 7.5 g/dL (6.6-8.7)
[2023-04-03 12:56] LABS: Add Urine Culture? No; Add Urine Microscopic? YES; Bilirubin Urine Neg (Negative); Blood Urine Trace (Negative); Glucose Urine UA Norm (Normal); Ketones Urine Negative (Negative); Leukocyte Esterase Urine Negative (Negative); Nitrate Urine Negative (Negative); Protein Urine Neg (Negative); RBC Urine 0-4 /hpf (0-2); Squamous Epithelial Cell Urine 0-4 /hpf (0-5); Urine Appearance Clear (CLEAR); Urine Color Yellow (Yellow); Urobilinogen Urine Norm (Negative); WBC Urine 0-4 /hpf (0-5); pH Urine 5 (5-7)
[2023-04-03] MEDS: hyDRALAzine 20 mg/mL INJ 1 mL 10 MG IVP ×2 (13:37→15:29)
[2023-04-03] MEDS: metoprolol tartrate 1 mg/1 mL SDV 5 mL 5 MG IVP (13:38)
--- NOTE | 2023-04-03 14:00 | ECG_ITS ---
[facility] Test Date: 2023-04-03 Pat Name: Aida Dhillon Department: Room: Gender: Female Counter Weigher: : 1945 Requested By: Poli Dunn Order Number: [id number] Lul MD: Geraldine Eastman M.D. Measurements Intervals [place] Rate: 89 P: 52 UT: 131 QRS: 62 QRSD: 81 T: 40 QT: 367 QTc: 447 Interpretive Statements SINUS RHYTHM WITH FREQUENT SUPRAVENTRICULAR PREMATURE COMPLEXES MINIMAL ST DEPRESSION [0.025+ mV ST DEPRESSION] ABNORMAL RHYTHM ECG Compared to ECG 04/03/2023 11:35:59 No significant changes Electronically Signed On 04-03-2023 23:33:39 CDT by Geraldine Eastman M.D. [email or web address] [email or web address] [email or web address].[employer]/store/OM/[id number]
[2023-04-03 15:14] LABS: Troponin 5 2HR 7.01 ng/L (0-10); Troponin 5 2HR Delta 1.01 ABS# (0-10)
[2023-04-03] MEDS: FUROsemide 10 mg/mL SDV 4mL 40 MG IVP (16:30)
[2023-04-03] MEDS: metoprolol tartrate 1 mg/1 mL SDV 5 mL 10 MG IVP (16:30)
--- NOTE | 2023-04-03 17:39 | PM.CONSULT ---
Providers/Reason For Consult Consulting Physician/Specialty*: Rashel Alvarado MD/ Cardiology Reason for Consult*: Palpitations Requesting Physician: Dr Dunn Primary Care Provider: Gary Wyatt MD History of Present Illness History of Present Illness Aida Dhillon is a 78 year old female with past medical history of paroxysmal atrial tachycardia and hypertension presented to hospital after she was feeling presyncopal, weak and had palpitations. Patient has been on antibiotics recently secondary to possible chest congestion and bronchitis. Denies chest pain. EKG shows normal sinus rhythm with brief runs of paroxysmal atrial tachycardia/SVT. Her blood pressure was uncontrolled and was above 200 mmHg. It has decreased after administration of medications. Review of Systems General: Reports: 10 or more systems reviewed and unremarkable except in HPI and below Const: Denies: fever(s), chills, fatigue or malaise Eyes: Denies: change in vision or blurry vision Card: Reports: palpitations; Denies: chest pain Resp: Reports: dyspnea and productive cough GI: Denies: abdominal pain, nausea or vomiting : Denies: flank pain Musc: Denies: extremity pain or extremity swelling Skin/Breast: Denies: rash or pruritus Neuro: Denies: headache(s) Psych: Denies: anxiety or depression Kana/Lymph: Denies: easy bleeding All/Imm: Denies: urticaria, throat swelling or facial swelling Medications/Allergies Home Medications Medication Instructions Recorded Confirmed Last Taken Type aspirin 81 mg tablet,delayed 81 mg PO .TWO TIMES A WEEK 04/03/22 04/03/23 04/02/22 History release atorvastatin 10 mg tablet 10 mg PO BEDTIME #90 tabs 06/18/22 04/03/23 04/02/23 Rx metoprolol tartrate 25 mg tablet 25 mg PO BID 30 days #60 tabs 11/26/22 04/03/23 04/03/23 08:00 Rx valsartan 320 mg tablet 320 mg PO DAILY #90 tabs 11/26/22 04/03/23 04/02/23 Rx alprazolam 0.25 mg tablet (Xanax) 0.25 mg PO BID PRN anxiety #60 tabs 12/10/22 04/03/23 04/03/23 Rx carvedilol 12.5 mg tablet 12.5 mg PO BID #180 tabs 01/29/23 04/03/23 04/03/23 08:00 Rx meloxicam 7.5 mg tablet 7.5 mg PO BID PRN pain #14 tabs 02/13/23 04/03/23 Unknown Rx amoxicillin 875 mg-potassium 1 tab PO BID 7 days #14 tabs 03/27/23 04/03/23 04/02/23 Rx clavulanate 125 mg tablet Allergies Allergy/AdvReac Type Severity Reaction Status Date / Time No Known Allergies Allergy Verified 04/03/23 11:57 PFSH Acute PFSH: Medical History Hypercholesteremia Hypertension Lipoma of anterior chest wall Ureterolithiasis Surgical History H/O: hysterectomy History of carpal tunnel surgery Family History Other CAD (coronary artery disease) Social History Smoking and tobacco status: never smoked Alcohol intake: never Vitals/I&O/Wt Last Vital Signs Pulse 95 04/03/23 17:23 Resp 20 H 04/03/23 15:00 BP 171/90 04/03/23 17:23 Pulse Ox 94 04/03/23 17:23 O2 Del Method Room Air 04/03/23 15:00 04/03/23 04/03/23 04/03/23 06:59 14:59 22:59 Intake Total 500 / 500 Balance 500 / 500 Weight last 48 hrs Weight 160 lb Physical Exam Narrative: GENERAL: Patient is alert, awake and oriented x3. [] NECK: No jugular vein distension. [] HEENT: No cyanosis. No icterus. No pallor. [] HEART: Regular S1 and S2. No murmur, rub or gallop. [] LUNGS: Clear to auscultate bilaterally. [] CENTRAL NERVOUS SYSTEM: Grossly nonfocal. [] EXTREMITIES: Lower extremities with no edema Data 04/03/23 12:17 04/03/23 12:17 A&P Assessment and plan (1) Paroxysmal atrial tachycardia: (2) Hypercholesteremia: (3) Hypertension: Plan Patient has Paroxysmal atrial tachycardia/SVT. We will uptitrate coreg 25mg BID. Stop metoprolol. Can take PRN metoprolol if have more frequent tachycardia episodes. Will start the clonidine now only as needed if blood pressure is over 200 Order event monitor. Patient may need benefit from antiarrhythmics/EP evaluation. Outpatient follow-up with Dr. Eastman in 2 weeks. Patient to bring blood pressure log Thank you for involving us with care of this patient. Please call with questions. Consult Attestations Medical Necessity Statement: Care not expected to cross 2 midnights. Coding Level of Care Code Acute Code for [facility] Diagnoses Paroxysmal atrial tachycardia I47.1 Hypercholesteremia E78.00 Hypertension I10
--- NOTE | 2023-04-09 09:31 | DCPLANNER ---
Addendum entered by Noa Addison 04/29/23 15:49: Patient attended both appointments scheduled with [facility]. Addendum entered by Noa Addison 04/17/23 10:41: Patient has a follow up appointment scheduled for Saturday, April 22, 2023 at 11:[address] Eastman at [facility]. Patient has a follow up appointment scheduled for Monday, April 24, 2023 at 10:00 for a holter monitor. Original Note: manager metrology had message to schedule an outpatient 14 day front desk monitor for patient. manager metrology faxed signed order to cardiology, who will call patient with appointment information. manager metrology also had message to schedule a follow up appointment for patient with cardiology. manager metrology sent patients information to the front office staff at [facility]. Patients information will be printed and reviewed. Clinic will call patient with appointment information.
== END 2023-04-03 18:23 | disposition home or self-care (01) ==
PROVIDERS: Emergency Provider Emergency Medicine; PCP Family Medicine
DX: I47.1 Supraventricular tachycardia (principal); I10 Essential (primary) hypertension; E78.00 Pure hypercholesterolemia, unspecified; Z79.899 Other long term (current) drug therapy; Z79.82 Long term (current) use of aspirin; Z82.49 Family history of ischemic heart disease and other diseases of the circulatory system
CPT/HCPCS: 36415; 71045; 71046; 80053; 81001; 83880; 84484; 85025; 86140; 93005; 96361; 96374; 96375; 96376; 99285; J0360; J1940; J3490; J7040

== ENCOUNTER → 2023-04-22 10:39 | Outpatient (BNVA) | payer MEDICARE, SELFPAY | PROVIDERS: PCP Family Medicine; Visit Provider Internal Medicine Cardiovascular Disease | DX: I47.1 Supraventricular tachycardia (principal); I10 Essential (primary) hypertension; R00.2 Palpitations; E78.00 Pure hypercholesterolemia, unspecified | CPT/HCPCS: 99214 ==

== ENCOUNTER 2023-05-05 03:03 | Emergency (ER) | payer MEDICARE, SELFPAY ==
[2023-05-05 03:10] VITALS: BP 236/116; PULSE 109; RESP 20; TEMP 36.4; O2SAT 100; BMI 27.4
--- NOTE | 2023-05-05 03:10 | XRR_ITS ---
PROCEDURE INFORMATION: Exam: XR Chest Exam date and time: 05/05/2023 3:12 AM Age: 78 years old Clinical indication: Pain; Patient HX: C/O palpitations with hypertension. Wearing external heart monitor. ; Additional info: Cp TECHNIQUE: Imaging protocol: Radiologic exam of the chest. Views: 1 view. COMPARISON: CR XR chest 2V* [id number] 04/03/2023 12:04 PM FINDINGS: Lungs: Unremarkable. No consolidation. Pleural spaces: Unremarkable. No pleural effusion. No pneumothorax. Heart/Mediastinum: Unremarkable. No cardiomegaly. Bones/joints: Unremarkable. XR/XR chest 1V portable [id number] IMPRESSION: No acute findings.
--- NOTE | 2023-05-05 03:10 | ECG_ITS ---
[facility] Test Date: 2023-05-05 Pat Name: Aida Dhillon Department: Room: Gender: Female Bracelet Former: : 1945 Requested By: Kath Keen Order Number: [id number] Lul MD: Rashel Alvarado M.D. Measurements Intervals [place] Rate: 95 P: 43 ID: 132 QRS: 66 QRSD: 79 T: 42 QT: 368 QTc: 463 Interpretive Statements SINUS RHYTHM WITH FREQUENT SUPRAVENTRICULAR PREMATURE COMPLEXES MODERATE ST DEPRESSION [0.05+ mV ST DEPRESSION] Compared to ECG 04/03/2023 14:15:24 No significant changes Electronically Signed On 05-05-2023 9:26:54 CDT by Rashel Alvarado M.D. [id number]
[2023-05-05 03:15] VITALS: BP 236/116; PULSE 86; RESP 17; O2SAT 100
[2023-05-05] MEDS: labetalol 5 mg/mL SDV 20mL 10 MG IVP (03:25)
[2023-05-05 03:26] LABS: Basophils # 0.1 10^3/uL (0.0-0.1); Basophils % 0.8 %; Eosinophils # 0.2 10^3/uL (0.0-0.8); Eosinophils % 1.5 %; Hematocrit 44.3 % (36-47); Lymphocytes # 3.2 10^3/uL (0.8-4.8); Mean Corpuscular Hemoglobin 29.3 pg (27-33); Mean Corpuscular Volume 88.8 fl (85-98); Mean Platelet Volume 9.6 fL (7.4-10.4); Monocytes # 0.8 10^3/uL (0.2-0.9); Monocytes % 6.9 %; Neutrophils # 6.78 10^3/uL (1.8-7.7); Neutrophils % 61.4 %; Nucleated Red Blood Cells % 0 %; Platelet Count 350 10^3/cmm (157-399); Red Blood Count 4.99 10^6/uL (3.85-5.65); White Blood Count 11.05 10^3/uL (3.29-11.43)
--- NOTE | 2023-05-05 03:27 | W.ED.ARRPALP ---
HPI - Arrhythmia/Palpitations General: Chief Complaint: Arrhythmia/Palpitations Stated Complaint: Heart Palpatations\Blood Pressure High Time Seen by Provider: 05/05/23 03:10 Source: patient Mode of arrival: ambulatory Limitations: no limitations History of Present Illness: 78-year-old female with history of palpitations heart monitor but states that tonight her hearts been racing and high blood pressure she has not been able to sleep pain denies any shortness of breath states she does feel her heart racing denies any worsening proving factors she states she used to be on metoprolol they have stopped her metoprolol and started on carvedilol. Associated symptoms: Deny nausea or vomiting Review of Systems Const: Denies: fever(s) or chills ENMT: Denies: throat pain or dental pain Card: Reports: palpitations and irregular heart rhythm; Denies: chest pain Resp: Denies: dyspnea GI: Denies: abdominal pain, nausea, vomiting or diarrhea : Denies: dysuria Musc: Denies: neck pain or back pain Skin/Breast: Denies: rash Neuro: Denies: headache(s) PFSH ED PFSH: Medical History Hypercholesteremia Hypertension Lipoma of anterior chest wall Ureterolithiasis Surgical History H/O: hysterectomy History of carpal tunnel surgery Family History Other CAD (coronary artery disease) Social History Smoking and tobacco status: never smoked Alcohol intake: never Physical Exam Const: COMMON NORMALS: patient oriented x3 HENMT: COMMON NORMALS: normocephalic and atraumatic HEAD & SCALP: normocephalic and atraumatic Neck/C-Spine: COMMON NORMALS: full ROM and supple Chest: COMMONS NORMALS: normal inspection of the chest and normal palpation of entire chest wall Resp: COMMON NORMALS: normal respiratory effort, No retractions, No use of accessory muscles and clear to auscultation bilaterally AUSCULTATION: clear to auscultation bilaterally Cardio: COMMON NORMALS: No murmurs present (Cardio) RATE: tachycardic RHYTHM: abnormal rhythm GI: COMMON NORMALS: Normal to inspection, nondistended, normoactive bowel sounds present, Soft to palpation, non-tender and no masses PALPATION: Yes Soft to palpation Extremity: COMMON NORMALS: normal to inspection and full ROM Neuro: COMMON NORMALS: patient oriented x3, moves all extremities and no focal motor deficits Psych: COMMON NORMALS: mental status grossly normal, Normal thought process present and cooperative THOUGHT PROCESS: Normal thought process present Skin: COMMON NORMALS: no rashes or lesions noted and no wounds GENERAL SKIN EXAM: no rashes or lesions noted Course Vital Signs: Vital signs: Vital Signs Temperature 97.6 F 05/05/23 03:10 Pulse Rate 56 L 05/05/23 05:13 Respiratory Rate 18 05/05/23 05:13 Blood Pressure 143/71 05/05/23 05:13 Pulse Oximetry 96 05/05/23 05:13 Oxygen Delivery Me thod Room Air 05/05/23 03:51 MDM - Arrhythmia/Palpitations Medical Decision Making Patient presents here with palpitations she does have a history of paroxysmal atrial tachycardia she has not been taking all of her doses of Cardizem she states especially in the morning as she is concerned about hypotension. Patient's heart rate here is now stabilized after labetalol and Cardizem did offer admission she states she feels improved would like to follow-up with Dr. Eastman she has a heart monitor in place she is to take her meds as prescribed return if worsening she understands agrees to plan. Medical Records I reviewed the patient's medical records. Lab Data I reviewed the patient's lab results. 05/05/23 03:20 05/05/23 03:20 Radiology Impressions Chest X-Ray 05/05/23 03:10 IMPRESSION: No acute findings. Laboratory Results WBC 11.05 10^3/uL (3.29-11.43) 05/05/23 03:20 RBC 4.99 10^6/uL (3.85-5.65) 05/05/23 03:20 Hgb 14.60 g/dL (11.27-16.99) 05/05/23 03:20 Hct 44.3 % (36-47) 05/05/23 03:20 MCV 88.8 fl (85-98) 05/05/23 03:20 MCH 29.3 pg (27-33) 05/05/23 03:20 MCHC 33.0 g/dL (30-55) 05/05/23 03:20 RDW 14.0 % (12.1-15.1) 05/05/23 03:20 Plt Count 350 10^3/cmm (157-399) 05/05/23 03:20 MPV 9.6 fL (7.4-10.4) 05/05/23 03:20 Neut % (Auto) 61.4 % 05/05/23 03:20 Lymph % (Auto) 29.0 % 05/05/23 03:20 Love % (Auto) 6.9 % 05/05/23 03:20 Eos % (Auto) 1.5 % 05/05/23 03:20 Baso % (Auto) 0.8 % 05/05/23 03:20 Neut # (Auto) 6.78 10^3/uL (1.8-7.7) 05/05/23 03:20 Lymph # (Auto) 3.2 10^3/uL (0.8-4.8) 05/05/23 03:20 Love # (Auto) 0.8 10^3/uL (0.2-0.9) 05/05/23 03:20 Eos # (Auto) 0.2 10^3/uL (0.0-0.8) 05/05/23 03:20 Baso # (Auto) 0.1 10^3/uL (0.0-0.1) 05/05/23 03:20 Nucleated RBC % (auto) 0 % 05/05/23 03:20 Nucleated RBCs # 0.0 /100WBC 05/05/23 03:20 Sodium 140 mmol/L (136-145) 05/05/23 03:20 Potassium 4.0 mmol/L (3.5-5.1) 05/05/23 03:20 Chloride 104 mmol/L (98-107) 05/05/23 03:20 Carbon Dioxide 23 mmol/L (22-29) 05/05/23 03:20 Anion Gap 17.0 (5-19) 05/05/23 03:20 BUN 21 mg/dL (8-23) 05/05/23 03:20 Creatinine 0.9 mg/dL (0.5-0.9) 05/05/23 03:20 GFR Calculation Not Reportable 05/05/23 03:20 Glucose 129 mg/dL (65-115) H 05/05/23 03:20 Calculated Osmolality 295 mOsm/kg (285-295) 05/05/23 03:20 Calcium 9.7 mg/dL (8.5-10.5) 05/05/23 03:20 Total Bilirubin 0.6 mg/dL (0.15-1.2) 05/05/23 03:20 AST 25 U/L (0-32) 05/05/23 03:20 ALT 12 U/L (0-33) 05/05/23 03:20 Alkaline Phosphatase 111 U/L (35-105) H 05/05/23 03:20 Troponin T Baseline 10 ng/L (0-10) 05/05/23 03:20 Total Protein 7.7 g/dL (6.6-8.7) 05/05/23 03:20 Albumin 4.5 g/dL (3.5-5.2) 05/05/23 03:20 Globulin 3.2 g/dL (1.3-4.6) 05/05/23 03:20 Discharge Plan Discharge Patient Disposition: Home Clinical Impression: Paroxysmal atrial tachycardia Condition: Stable Prescriptions: No Action valsartan 320 mg tablet 320 mg PO DAILY Qty: 90 3RF Xanax 0.25 mg tablet 0.25 mg PO BID PRN (Reason: anxiety) Qty: 60 3RF atorvastatin 10 mg tablet 10 mg PO BEDTIME Qty: 90 3RF carvedilol 25 mg tablet 25 mg PO BID Qty: 60 5RF aspirin 81 mg Tablet,Delayed Release (Dr/Ec) 81 mg PO .TWO TIMES A WEEK meloxicam 7.5 mg tablet 7.5 mg PO BID PRN (Reason: pain ) Qty: 14 0RF Discharge Orders: Discharge ED (Routine); Ordered 05/05/23 Ordered By: Kath Keen Referrals: Gary Wyatt MD [Primary Care Provider] - 1-3 days Discharge Diet: Advance as tolerated Discharge Activity: Resume usual activity Patient Instructions: Heart Palpitations (ED) Coding Level of Care Code ED Distilling Department Supervisor for g Joleen
[2023-05-05 03:38] VITALS: BP 175/86; PULSE 128; RESP 20; O2SAT 97
[2023-05-05 03:45] LABS: Troponin(5th) Baseline 10 ng/L (0-10)
[2023-05-05 03:47] LABS: Alanine Aminotransferase 12 U/L (0-33); Albumin Level 4.5 g/dL (3.5-5.2); Alkaline Phosphatase 111 U/L (35-105); Aspartate Amino Transferase 25 U/L (0-32); Blood Urea Nitrogen 21 mg/dL (8-23); Calcium 9.7 mg/dL (8.5-10.5); Carbon Dioxide 23 mmol/L (22-29); Chloride 104 mmol/L (98-107); Creatinine Clr Calc Pharmacy 51.1122; Globulin 3.2 g/dL (1.3-4.6); Glucose 129 mg/dL (65-115); Osmolality Calculated 295 mOsm/kg (285-295); Sodium 140 mmol/L (136-145); Total Bilirubin 0.6 mg/dL (0.15-1.2); Total Protein 7.7 g/dL (6.6-8.7)
[2023-05-05] MEDS: dilTIAZem 100 MG in sodium chloride 0.9% (add-van) 100 ML IV (03:48)
[2023-05-05 03:51] VITALS: BP 174/78; PULSE 71; RESP 19; O2SAT 99
--- NOTE | 2023-05-05 05:10 | ECG_ITS ---
[facility] Test Date: 2023-05-05 Pat Name: Aida Dhillon Department: Room: Gender: Female Xray Tech: : 1945 Requested By: Kath Keen Order Number: [id number] MD: Rashel Alvarado M.D. Measurements Intervals [place] Rate: 66 P: 2 TN: 139 QRS: 60 QRSD: 89 T: 65 QT: 416 QTc: 436 Interpretive Statements SINUS RHYTHM WITH OCCASIONAL SUPRAVENTRICULAR PREMATURE COMPLEXES Compared to ECG 05/05/2023 03:13:08 ST (T wave) deviation no longer present Electronically Signed On 05-05-2023 9:30:04 CDT by Rashel Alvarado M.D. [id number]
[2023-05-05 05:13] VITALS: BP 143/71; PULSE 56; RESP 18; O2SAT 96
== END 2023-05-05 05:14 | disposition home or self-care (01) ==
PROVIDERS: Emergency Provider Emergency Medicine; PCP Family Medicine
DX: I47.1 Supraventricular tachycardia (principal); Z79.82 Long term (current) use of aspirin; I10 Essential (primary) hypertension
CPT/HCPCS: 71045; 80053; 84484; 85025; 93005; 96365; 96375; 99285; J3490

== ENCOUNTER → 2023-10-28 12:41 | Outpatient (BNVA) | payer MEDICARE, SELFPAY | PROVIDERS: PCP Family Medicine; Visit Provider Internal Medicine Cardiovascular Disease | DX: I49.9 Cardiac arrhythmia, unspecified (principal); E78.00 Pure hypercholesterolemia, unspecified; F41.9 Anxiety disorder, unspecified; I10 Essential (primary) hypertension | CPT/HCPCS: 99214 ==

== ENCOUNTER → 2024-04-24 10:20 | Outpatient (BNVA) | payer MEDICARE, SELFPAY | PROVIDERS: PCP Family Medicine; Visit Provider Nurse Practitioner Family | DX: I49.9 Cardiac arrhythmia, unspecified (principal); R00.2 Palpitations; I10 Essential (primary) hypertension | CPT/HCPCS: 84443; 93005; 99214 ==

== ENCOUNTER → 2024-05-22 10:20 | Outpatient (BNVA) | payer MEDICARE, SELFPAY | PROVIDERS: PCP Family Medicine; Visit Provider Nurse Practitioner Family | DX: I10 Essential (primary) hypertension (principal); E78.00 Pure hypercholesterolemia, unspecified | CPT/HCPCS: 99214 ==

== ENCOUNTER 2024-06-23 08:45 | Outpatient (CLI) | payer MEDICARE, SELFPAY ==
--- NOTE | 2024-06-23 09:16 | ECG_ITS ---
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 Interpretive Statements PROCEDURE: At the baseline, the EKG revealed sinus rhythm with frequent PACs and short runs of PAT's. The baseline heart was 85 bpm with a blood pressue of 168/109 mm of Hg Lexiscan was infused over a period of 20 seconds. A total of 0.4 milligrams of Lexiscan was infused. The stress phase was continued for a total of 5 minutes. Heart rate at the end of the stress phase was 140 bpm with a blood pressure 131/83 mm of Hg. The EKG at the peak infusion revealed no significant changes. Sestamibi was injected 20 seconds after the Lexiscan infusion. Heart rate at the end of the recovery phase was 98 bpm with a blood pressure of 137/79 mm of Hg. CONCLUSION: 1. No significant EKG changes with the LexiScan infusion 2. No LexiScan induced chest pain or cardiac arrhythmia 3. Normal blood pressure and heart rate response 4. Sestamibi/sestamibi perfusion scan pending; see separate report. Lung unchanged pre/post procedure; Intraprocedure shortess of breath and nausea ; Symptoms resoled after the admiistration of Zofran Electronically Signed On 06-24-2024 08:16:06 CDT by Geraldine Eastman M.D. [id number]
--- NOTE | 2024-06-23 09:17 | NMCV_ITS ---
NM [facility] perf SPECT r/s* [id number] Aida Dhillon Age: 79 Gender: F : 1945 Exam Date: 06/23/2024 09:56 Ordering Phys: Yojana Aguirre Technologist: JUAN Kendall Exam Location: [facility] Indications: cp STRESS TEST Please see separate stress test report in [facility] for full findings IMAGE PROTOCOL Rest/Stress 1 Lexiscan Day Radiopharmaceutical Dose (mCi) Administration Site Administered by Rest: Tc-99m 8.7 IV Ely Doty, [employer] Sestamibi Stress:Tc-99m 27.1 IV Ely Doty, [employer] Sestamibi Rest: 23-Jun-2024 60 Discovery 630 Stress: 23-Jun-2024 30 Discovery 630 0.4mg Lexiscan. Images obtained in supine and prone position. SPECT RESULTS Technical Quality: Good Raw Data Analysis: Normal Image Corrections: No attenuation or motion correction applied Summed Stress Score: 0 Summed Rest Score: 0 Summed Difference Score: 0 PERFUSION FINDINGS Uniform myocardial tracer uptake with no significant Perfusion abnormalities FUNCTIONAL RESULTS (calculated via Gated SPECT) Stress Image LV EF (%): 66 Stress EDV (mL):44 TID: 0.76 Stress ESV (mL):15 FUNCTIONAL FINDINGS: Segmental wall motion analysis revealing no gross wall motion abnormalities IMPRESSIONS 1. Uniform myocardial tracer uptake with no significant perfusion abnormalities. 2. Normal LV ejection fraction of 66%. 3. LV wall motion analysis revealing no gross wall motion abnormalities. 4. Normal LV volume Low probability for coronary ischemia, based on the above findings Compared to the study from 02/16/2022, no significant change Dr Geraldine Eastman MD FAC (Electronically Signed) Final Date: 23 June 2024 19:40 S
[2024-06-23] MEDS: regadenoson 0.4 Mg/5 ml Syringe IVP (10:43)
[2024-06-23] MEDS: ondansetron 2 mg/ML SDV 2 mL 4 MG IVP (10:54)
[2024-06-23 11:28] VITALS: BP 137/79; PULSE 84
== END 2024-06-23 08:46 | disposition home or self-care (01) ==
PROVIDERS: PCP Family Medicine; Visit Provider Nurse Practitioner Family
DX: I47.10 Supraventricular tachycardia, unspecified (principal); I49.1 Atrial premature depolarization; R00.2 Palpitations; R06.02 Shortness of breath; R11.0 Nausea
CPT/HCPCS: 36415; 78452; 93017; 96374; 96375; A9500; J2405; J2785

== ENCOUNTER 2024-07-14 08:10 | Outpatient (CLI) | payer MEDICARE, SELFPAY ==
[2024-07-14 08:44] LABS: Basophils # 0.1 10^3/uL (0.0-0.1); Basophils % 0.8 %; Eosinophils # 0.1 10^3/uL (0.0-0.8); Eosinophils % 1.3 %; Hematocrit 46.3 % (36-47); Mean Corpuscular HGB Conc 31.7 g/dL (30-55); Mean Corpuscular Hemoglobin 28.7 pg (27-33); Mean Corpuscular Volume 90.4 fl (85-98); Monocytes # 0.6 10^3/uL (0.2-0.9); Neutrophils # 6.72 10^3/uL (1.8-7.7); Neutrophils % 63.6 %; Nucleated Red Blood Cells % 0 %; Platelet Count 305 10^3/cmm (157-399); Red Blood Count 5.12 10^6/uL (3.85-5.65); Red Cell Distribution Width 13.9 % (12.1-15.1); White Blood Count 10.55 10^3/uL (3.29-11.43)
[2024-07-14 08:56] LABS: INR 1.02 (0.83-1.21); Prothrombin Time (Patient) 13.7 Seconds (12.0-15.1)
[2024-07-14 09:09] LABS: Alanine Aminotransferase 8 U/L (0-33); Albumin Level 4.1 g/dL (3.5-5.2); Alkaline Phosphatase 88 U/L (35-105); Anion Gap 13.4 (5-19); Aspartate Amino Transferase 19 U/L (0-32); Blood Urea Nitrogen 13 mg/dL (8-23); Carbon Dioxide 24 mmol/L (22-29); Chloride 106 mmol/L (98-107); Globulin 3.5 g/dL (1.3-4.6); Glucose 107 mg/dL (65-115); Osmolality Calculated 289 mOsm/kg (285-295); Potassium 4.4 mmol/L (3.5-5.1); Sodium 139 mmol/L (136-145); Thyroid Stimulating Hormone 3.15 uIU/mL (0.27-4.20); Total Bilirubin 0.6 mg/dL (0.15-1.2); Total Protein 7.6 g/dL (6.6-8.7)
== END 2024-07-14 08:11 | disposition home or self-care (01) ==
LOC: LAB 08:11
PROVIDERS: PCP Family Medicine; Visit Provider Nurse Practitioner Family
DX: I47.10 Supraventricular tachycardia, unspecified (principal); R00.2 Palpitations; I10 Essential (primary) hypertension; I49.9 Cardiac arrhythmia, unspecified
CPT/HCPCS: 36415; 80053; 84443; 85025; 85610

== ENCOUNTER → 2024-07-20 09:55 | Outpatient (BNVA) | payer MEDICARE, SELFPAY | PROVIDERS: PCP Family Medicine; Visit Provider Nurse Practitioner Family | DX: I49.8 Other specified cardiac arrhythmias (principal); R94.31 Abnormal electrocardiogram [ECG] [EKG] | CPT/HCPCS: 93005 ==

== ENCOUNTER → 2024-07-20 10:11 | Outpatient (BNVA) | payer MEDICARE, SELFPAY | PROVIDERS: PCP Family Medicine; Visit Provider Internal Medicine Cardiovascular Disease | DX: R00.2 Palpitations (principal); I47.19 Other supraventricular tachycardia; I49.1 Atrial premature depolarization; I49.3 Ventricular premature depolarization | CPT/HCPCS: 93242 ==

== ENCOUNTER → 2024-11-17 10:56 | Outpatient (BNVA) | payer MEDICARE, SELFPAY | PROVIDERS: PCP Family Medicine; Visit Provider Internal Medicine Cardiovascular Disease | DX: I49.9 Cardiac arrhythmia, unspecified (principal); I10 Essential (primary) hypertension; E78.00 Pure hypercholesterolemia, unspecified; F41.9 Anxiety disorder, unspecified | CPT/HCPCS: 99214 ==

== ENCOUNTER → 2025-06-03 11:18 | Outpatient (BNVA) | payer MEDICARE, SELFPAY | PROVIDERS: PCP Family Medicine; Visit Provider Family Medicine | DX: I10 Essential (primary) hypertension (principal); E78.00 Pure hypercholesterolemia, unspecified | CPT/HCPCS: 80053; 80061; 85025 ==